=== PATIENT | male | born 1970 | race Caucasian/White ===

== ENCOUNTER 2022-09-14 15:21 | Inpatient (IN) | payer BC, SELFPAY ==
[2022-09-14] VITALS (13 sets, daily range): BP systolic 109–150; BP diastolic 71–98; PULSE 72–110; RESP 15–20; TEMP 35.5–36.9; O2SAT 99–100
--- NOTE | ~2022-09-14 | XR_ITS ---
EXAMINATION: XR chest 1V portable INDICATION: Fever TECHNIQUE: Portable AP chest at 0756 hours COMPARISON: 09/16/2022 FINDINGS: The endotracheal and nasogastric tubes have been removed. There are minimal airspace opacit ies of the left lung base. No pleural effusion or pneumothorax. The cardiomediastinal silhouette is s table. IMPRESSION: 1. Minimal left basilar airspace opacity, consistent with atelectasis versus pneumonia. 2. Support tube removal. Reviewed, dictated and finalized at location A. IMPRESSION: 1. Minimal left basilar airspace opacity, consistent with atelectasis versus pn eumonia. 2. Support tube removal.
--- NOTE | ~2022-09-14 | MR_ITS ---
MRI of the brain Clinical History: CVA Technique: Axial and sagittal T1-weighted images were acquired. These were followed by axial T2-weigh demar, diffusion weighted, gradient, and FLAIR images. Findings: There is patchy restricted diffusion in the left parietal lobe, especially in the posterior , paramedian high left parietal lobe and along the superior margin of the left lateral ventricle. The re are numerous additional smaller scattered focal areas of restricted diffusion in the bilateral MCA distributions predominantly. Small focus of restricted diffusion present in the medial left temporal lobe. There is corresponding FLAIR hyperintense signal with most of these lesions. No intracranial hemorrhage evident. Ventricles and subarachnoid spaces are unremarkable. Orbits are unremarkable. Paranasal sinuses and m astoid air cells are clear. Distal right vertebral artery flow-void not clearly visualized Sagittal midline structures are intact.. IMPRESSION: Multiple scattered areas of acute infarct in the bilateral MCA distributions predominantly. Largest a reas of infarct are in the left parietal lobe. Given the scattered distribution in bilateral vascular territories, consider proximal source of embolic showering. Reviewed, dictated and finalized at location M. IMPRESSION: Multiple scattered areas of acute infarct in the bilateral MCA distributions pr edominantly. Largest areas of infarct are in the left parietal lobe. Given the scattered distribution in bilateral vascular territories, consider proximal albertina rce of embolic showering.
--- NOTE | ~2022-09-14 | US_ITS ---
Duplex Sonography of the right upper extremity: Indication: Phlebitis right wrist Sagittal and transverse B-mode images as well as color-flow imaging were performed on the right inter nal jugular, subclavian, axillary, brachial, basilic, and cephalic veins. B-mode examination was don e without and with compression in the transverse plane. There is good visualization of the internal jugular, subclavian, axillary, brachial, cephalic, and basilic veins. Normal flow was seen on color-f low imaging. Normal compressibility was demonstrated. Distal right cephalic vein near the wrist demonstrate echogenic thrombosis, and is noncompressible wi th absence of flow. Impression: Thrombosis of the distal cephalic vein near the wrist. No deep vein thrombosis in the right upper extremity. Reviewed, dictated and finalized at location . Impression: Thrombosis of the distal cephalic vein near the wrist. No deep vein thrombosis in the right upper extremity.
--- NOTE | ~2022-09-14 | CT_ITS ---
EXAMINATION: CT brain wo con INDICATION: Encephalopathy, transient alteration of awareness COMPARISON: None TECHNIQUE: Standard unenhanced head CT. The dose-length product (DLP) was 1059.33 mGy-cm. The mA was adjusted according to patient size. Iterative reconstruction technique was employed. FINDINGS: No intracranial hemorrhage is identified. There are an area of low-attenuation in the poste rior left frontal lobe and medial left frontoparietal region. There are smaller, subtle areas of low attenuation anteriorly in the left frontal lobe. The ventricles are normal. There is no abnormal mass effect or midline shift. The basal cisterns are patent. The orbits are normal. The paranasal sinuses , mastoids and calvarium are normal. IMPRESSION: 1. Subtle areas of low attenuation in the left frontal lobe and medial left frontoparietal region whi ch may reflect infarct related to recent cardiopulmonary arrest. Reviewed, dictated and finalized at location A. IMPRESSION: 1. Subtle areas of low attenuation in the left frontal lobe and medial left fro ntoparietal region which may reflect infarct related to recent cardiopulmonary arrest.
--- NOTE | ~2022-09-14 | US_ITS ---
EXAMINATION: US venous doppler [facility] DATE: 09/17/2022 08:45 INDICATION: Bilateral lower limb swelling TECHNIQUE: Dooley scale images without and with compression and Doppler images of the bilateral lower e xtremity veins were obtained. COMPARISON: None FINDINGS: The right common femoral vein, profunda femoral vein, femoral vein, popliteal vein, peroneal trunk, p osterior tibial veins, and greater saphenous vein are patent. The left common femoral vein, profunda femoral vein, femoral vein, popliteal vein, peroneal trunk, po sterior tibial veins, and greater saphenous vein are patent. IMPRESSION: 1. Patent bilateral lower extremity veins. No evidence of deep venous thrombosis. Reviewed, dictated and finalized at location A. IMPRESSION: 1. Patent bilateral lower extremity veins. No evidence of deep venous thrombosi s.
--- NOTE | ~2022-09-14 | XR_ITS ---
Portable chest x-ray Comparison: 09/15/2022 Clinical History: Respiratory failure Findings: Endotracheal tube and NG tube are in satisfactory positions. Questionable minimal left per ihilar haziness. Right lung clear. Cardiomediastinal silhouette is stable. Bones and soft tissues ar e unremarkable. Impression: Questionable minimal left perihilar haziness, nonspecific. Support tubes, as above. Reviewed, dictated and finalized at location . Impression: Questionable minimal left perihilar haziness, nonspecific. Support tubes, as above.
--- NOTE | ~2022-09-14 | XR_ITS ---
EXAMINATION: XR chest 1V portable INDICATION: Fever TECHNIQUE: Portable AP chest at 2112 hours COMPARISON: 09/17/2022 FINDINGS: The lungs are free of acute opacities. No pleural effusion or pneumothorax. The cardiomedia stinal silhouette is normal. IMPRESSION: 1. No acute cardiopulmonary abnormality. Reviewed, dictated and finalized at location F.
--- NOTE | ~2022-09-14 | XR_ITS ---
Portable chest x-ray Comparison: 09/14/2022 Clinical History: Intubated Findings: Endotracheal tube and NG tube are in satisfactory positions. Probable minimal central pulm onary edema. Cardiomediastinal silhouette is stable. Bones and soft tissues are unremarkable. Impression: Probable minimal central pulmonary edema. Support tubes, as above. Reviewed, dictated and finalized at [facility]. Impression: Probable minimal central pulmonary edema. Support tubes, as above.
--- NOTE | ~2022-09-14 | US_ITS ---
EXAMINATION: US carotid duplex BI DATE: 09/17/2022 15:11 INDICATION: Cerebrovascular infarct TECHNIQUE: Grayscale, color Doppler, and pulsed Doppler images of the cervical carotid arteries were obtained. The degree of vessel stenosis is placed in one of the following categories: normal, <50%, 5 0-69%, >=70% but less than near-occlusion, near-occlusion, or total occlusion. Note that percent sten osis relative to normal distal artery lumen diameter is indirectly measured from velocity measurement s as described by Steve, et al. Radiology 2003; 229:[id number]. COMPARISON: None. FINDINGS: RIGHT: The right common carotid artery (CCA) peak systolic velocity (PSV) is 135.0 cm/s. The right internal carotid artery (ICA) PSV is 83.6 cm/s. The right ICA end-diastolic velocity (EDV) is 22.6 cm/s. The r ight ICA/CCA PSV ratio is 0.6. Grayscale and color Doppler images yield an estimate of less than 50% diameter reduction from plaque in the ICA. The external carotid artery (ECA) PSV is 106.4 cm/s. There is antegrade flow in the right vertebral artery. LEFT: The left CCA PSV is 149.6 cm/s. The left ICA PSV is 80.2 cm/s. The left ICA EDV is 23.3 cm/s. The lef t ICA/CCA PSV ratio is 0.5. Grayscale and color Doppler images yield an estimate of less than 50% renetta meter reduction from plaque in the ICA. The ECA PSV is 132.4 cm/s. There is antegrade flow in the lef t vertebral artery. IMPRESSION: 1. Less than 50% stenosis in the right internal carotid artery. 2. Less than 50% stenosis in the left internal carotid artery. Reviewed, dictated and finalized at Location [facility]. Reviewed, dictated and finalized at location A.
--- NOTE | ~2022-09-14 | XR_ITS ---
MODIFIED ESOPHAGRAM HISTORY: Dysphagia. TECHNIQUE: Modified barium esophagram was performed by speech pathologist under radiologist fluorosco pic guidance. This was recorded on tape. The exam was reviewed on 09/19/2022 10:25 CDT. The DAP for this procedure was 1.15 Gycm2. Fluoroscopy time is 1.1 minutes. FINDINGS: Lateral projection of the cervical spine demonstrates normal alignment. There is normal s wallowing function without evidence for penetration or aspiration.. IMPRESSION: 1: Normal swallowing function without penetration or aspiration. 2: Please refer to speech pathologist report for additional detail. Reviewed, dictated and finalized at location A.
--- NOTE | ~2022-09-14 | XR_ITS ---
EXAMINATION: XR chest ET placement Exam Date/Time: 09/14/2022 15:45 CDT HISTORY: ET TUBE PLACEMENT, PLEASE ALSO COMMENT ON OG Comparison: None available. RESULT: Lines, tubes, and devices: Endotracheal tube, terminating 2.4 cm above the sharonda. Nasogastric tube tip and side port project over the stomach. Lungs and pleura: Low lung volumes. Diffuse bilateral groundglass and reticular opacities. Cardiomediastinal silhouette: Heart size enlarged by technique. Otherwise unremarkable. Other: No acute osseous or upper abdominal finding. IMPRESSION: Endotracheal and NG tube, in good position. Mild pulmonary edema. Reviewed, dictated and finalized at location K.
--- NOTE | ~2022-09-14 | US_ITS ---
EXAMINATION: US abdomen limited DATE: 09/17/2022 08:45 INDICATION: Right upper quadrant pain TECHNIQUE: Multiple grayscale and Doppler ultrasound images of the abdomen were obtained. COMPARISON: None available FINDINGS: The head and body of the pancreas are normal. The pancreatic tail is obscured by bowel gas. The liver demonstrates increased echogenicity, heterogenous echotexture, and decreased through trans mission. No surface nodularity. Normal hepatopetal flow in the main portal vein. The gallbladder is n ormal with no abnormal wall thickening, pericholecystic fluid or stones. The normal common bile duct measures 4 mm. There was no sonographic Owen sign. IMPRESSION: 1. Diffuse hepatic steatosis. Reviewed, dictated and finalized at location A.
--- NOTE | 2022-09-14 15:27 | ECG_ITS ---
Measurements Intervals [place] Rate: 0 P: NE: 0 QRS: QRSD: 0 T: QT: 0 QTc: 0 Interpretive Statements SINUS TACHYCARDIA NON-CONDUCTED ATRIAL PREMATURE COMPLEX ANTEROSEPTAL ST ELEVATION MYOCARDIAL INJURY- ACUTE WITH RECIPROCAL ST DEPRESSION I IN INFERIOR LEADS ABNORMAL ECG NO PREVIOUS ECG AVAILABLE FOR COMPARISON Electronically Signed On 09-14-2022 15:43:57 CDT by Newton Rider D.O.
[2022-09-14] MEDS: FENTANYL 2,500MCG/NS250ML(*CRX 2,500 MCG/250 ML BAG IV CONT (15:40)
[2022-09-14] MEDS: MIDAZOLAM 100MG/NS 100ML(*CRX) 100 MG/100 ML BAG IV CONT (15:40)
--- NOTE | 2022-09-14 15:41 | ED.GENADULT ---
HPI - General Adult General Chief complaint: Cardiac Arrest/CPR Stated complaint: Cardiac arrest Time Seen by Provider: 09/14/22 15:26 History of Present Illness HPI narrative: Patient is a 51-year-old male who presents ER after having cardiac arrest. He was at a local [facility] when he collapsed. Bystander CPR was initiated. Patient found to be in V-fib by paramedics. Received defibrillation and went to a normal sinus rhythm with ROSC. This lasted a short while and then he went back into V-fib. He received subsequent shock. Patient arrived at the ER with ROSC. He is unresponsive. There is no history on him. Patient then was waking up and was combative requiring intubation. Review of Systems Review of Systems: ROS unobtainable: Yes unobtainable due to medical condition [facility] Past Medical History Medical History (Updated 09/14/22 @ 16:35 by Reno Wise MD) Hypertension Kidney stones Surgical History Surgical History (Updated 09/14/22 @ 16:09 by Reno Wise MD) Surgical history unknown Exam Narrative: GENERAL: Combative, obese. HEAD: Normocephalic, atraumatic. EYES: PERRL and EOMI. ENT: Mucous membranes moist. CHEST: Clear to auscultation. No respiratory distress. HEART: Regular rate and rhythm. Normal peripheral pulses. ABDOMEN: Soft, nontender, nondistended. EXTREMITIES: Normal range of motion. No edema. SKIN: Warm, dry, no rash. NEURO: Patient has awakened and is fighting but cannot communicate or follow commands. Course Course Emergency Course: Patient combative as he was waking up and he is intubated subacute care for him. After intubation EKG shows ST elevation [place]. STEMI activation occurred and cardiology immediately at bedside. I been in contact with the patient's stepmother Beatriz who is with his Father Jeremy. They can be reached at [phone]. There is no family living here locally and they will be acting as his surrogate decision makers. They are aware of the nature of his illness and would like to proceed with all care. Vital Signs Vital signs: Vital Signs Pulse Rate 109 H 09/14/22 15:22 Respiratory Rate 20 09/14/22 15:22 Pulse Oximetry 100 09/14/22 15:22 Oxygen Delivery Bag Valve Mask 09/14/22 15:22 Pulse Rate 110 H 09/14/22 15:40 Respiratory Rate 20 09/14/22 15:40 Pulse Oximetry 100 09/14/22 15:22 Oxygen Delivery Bag Valve Mask 09/14/22 15:22 Procedures Intubation Intubation #1: Intubation Date: 09/14/22 Intubation Time: 15:31 Time out performed: No sedative: Etomidate Mg Given: 30 paralytic: Succinylcholine Mg Given: 100 Laryngoscope: Luz Elena Tube Size (cm): 7.5 Method of Intubation: orotracheal Number of Attempts: 1 Tube Secured Depth (cm): 23 Tube Secured Location: teeth Tube Placement Confirmation: visualized tube passing through cords, equal breath sounds bilaterally, no breath sounds over epigastrium and confirmation by capnometry Patient Tolerated Procedure: well Intubation Complications: none Medical Decision Making Vital Signs Vital Signs: Vital Signs Pulse Rate 109 H 09/14/22 15:22 Respiratory Rate 20 09/14/22 15:22 Pulse Oximetry 100 09/14/22 15:22 Oxygen Delivery Bag Valve Mask 09/14/22 15:22 Pulse Rate 110 H 09/14/22 15:40 Respiratory Rate 20 09/14/22 15:40 Pulse Oximetry 100 09/14/22 15:22 Oxygen Delivery Bag Valve Mask 09/14/22 15:22 Lab Data 09/14/22 15:38 09/14/22 15:38 Labs: Lab Results 09/14/22 09/14/22 09/14/22 Range/Units 15:38 15:38 15:38 WBC 8.7 (4.5-10.0) K/mm3 RBC 5.70 (4.6-6.20) M/mm3 Hgb 16.6 (14.0-18.0) g/dL Hct 48.2 (42.0-52.0) % MCV 84.6 (80-100) fl MCH 29.1 (26-34) pg MCHC 34.4 (32-36) g/dl RDW 13.0 (11.5-14.5) % Plt Count 285 (150-375) k/mm3 MPV 10.7 H (7.4-10.4) fl [place]
[2022-09-14 15:47] LABS: Basophils Absolute Auto 0.1 K/mm3 (0.0-0.1); Basophils Percent Auto 1.2 % (0.2-1.2); Eosinophils Absolute Auto 0.1 K/mm3 (0-0.3); Eosinophils Percent Auto 1.4 % (0-4.4); Hematocrit 48.2 % (42.0-52.0); Hemoglobin 16.6 g/dL (14.0-18.0); Immature Granulocyte Absolute 0.15 K/mm3 (0.00-0.031); Immature Granulocyte Percent A 1.7 % (0-0.5); Lymphocytes Absolute Auto 4.15 K/mm3 (0.9-3.2); Lymphocytes Percent Auto 47.9 % (18.3-44.2); Mean Corpuscular HGB Conc 34.4 g/dl (32-36); Mean Corpuscular Hemoglobin 29.1 pg (26-34); Mean Corpuscular Volume 84.6 fl (80-100); Mean Platelet Volume 10.7 fl (7.4-10.4); Monocytes Absolute Auto 0.6 K/mm3 (0.1-0.6); Monocytes Percent Auto 6.6 % (2.6-8.5); Neutrophils Absolute Auto 3.6 K/mm3 (1.3-6.7); Neutrophils Percent Auto 41.2 % (45.5-73.1); Nucleated Red Blood Cells Perc 0.2 % (0.0-0.2); Platelet Count Result 285 k/mm3 (150-375); White Blood Count 8.7 K/mm3 (4.5-10.0)
[2022-09-14 15:58] LABS: Alanine Aminotransferase 261 U/L (6-50); Albumin Level 4.7 g/dL (3.5-5.1); Alkaline Phosphatase 68 U/L (38-126); Anion Gap 15 mmol/L (8-16); Aspartate Amino Transferase 260 U/L (17-59); Bilirubin,Total 1.4 mg/dL (0.2-1.3); Blood Urea Nitrogen 23 mg/dL (9-20); Calcium 8.7 mg/dL (8.4-10.2); Carbon Dioxide 20 mmol/L (22-30); Chloride 105 mmol/L (98-107); Cholesterol 226 mg/dL (0-200); Estimated CRCL calculation 68 ml/min; Estimated Glomerular Filt Rate 49; Glucose 254 mg/dL (65-110); HDL Direct 40 mg/dL; Potassium 2.9 mmol/L (3.4-5.0); Sodium 140 mmol/L (137-145); Triglycerides 374 mg/dL (<150)
--- NOTE | 2022-09-14 16:03 | PC.NURSE ---
1525:EDP Dr. Wise at bedside for intubation. 1530: 30mg of Etomidate and 100mg of Succinylcholine given IV per Dr. Wise. VORB. 1531: pt intubated 7.5 tube 25 @the lip. Respiratory at bedside assisting ventilations. 1535: EKG Obtained and STEMI called by Dr. Wise.
--- NOTE | 2022-09-14 16:05 | P.HP_ITS ---
H&P: HPI History of Present Illness Date/Time: 09/14/22 16:05 Chief Complaint: Cardiac arrest Narrative: Patient is a 51-year-old male with unknown past medical history who presented to the ER after having cardiac arrest. Patient was at a local [facility] when he collapsed. Bystander CPR initiated. Patient found to be in VFIB by paramedics. Received 1 shock and went into ROSC with sinus rhythm. Then went again into VFIB. Got another shock. Patient arrived to the ER with ROSC. He was unresponsive initially. He was then waking up and was combative thus requiring intubation. After intubation, EKG showed massive anterolateral STEMI. STEMI team activated. Family does not live here locally and lives in [place]. ER was able to talk to them via phone. Review of Systems Review of Systems: ROS unobtainable: Yes unobtainable due to endotracheal tube and unobtainable due to medical condition [facility] Past Medical History Medical History (Updated 09/14/22 @ 16:10 by Isidro Park MD) Hypertension Kidney stones Surgical History Surgical History (Updated 09/14/22 @ 16:09 by Reno Wise MD) Surgical history unknown Comments Cannot obtain past history due to intubation status. Meds Vital Signs Vital Signs - 24 hr 09/14/22 15:22 Pulse Rate 109 H Respiratory Rate 20 Pulse Oximetry 100 Oxygen Delivery Bag Valve Mask Exam Const: Other: Critically ill, intubated. Resp: Other: Intubated Cardio: Rate: tachycardic Rhythm: regular rhythm Skin: General skin exam: normal color Neuro: Other: Cannot assess due to intubation/sedation status Psych: Other: Cannot assess due to intubation/sedation status H&P: Results Labs Labs: Short CBC 09/14/22 Range/Units 15:38 WBC 8.7 (4.5-10.0) K/mm3 Hgb 16.6 (14.0-18.0) g/dL Hct 48.2 (42.0-52.0) % Plt Count 285 (150-375) k/mm3 BMP 09/14/22 15:38 Sodium 140 Potassium 2.9 L Chloride 105 Carbon Dioxide 20 L BUN 23 H Creatinine 1.50 H Glucose 254 H Calcium 8.7 Liver Function 09/14/22 Range/Units 15:38 Total Bilirubin 1.4 H (0.2-1.3) mg/dL AST 260 H (17-59) U/L ALT 261 H (6-50) U/L Alkaline Phosphatase 68 (38-126) U/L Albumin 4.7 (3.5-5.1) g/dL Assessment and Plan Assessment and plan (1) STEMI (ST elevation myocardial infarction): Code(s): I21.3 - ST elevation (STEMI) myocardial infarction of unspecified site Status: Acute (2) Cardiac arrest with ventricular fibrillation: Code(s): I46.9 - Cardiac arrest, cause unspecified; I49.01 - Ventricular fibrillation Status: Acute Plan Proceed with emergent coronary angiography with plans for primary PCI.
[2022-09-14 16:08] LABS: INR 1.1; Prothrombin Time 13.7 Seconds (11.1-14.7)
[2022-09-14 16:09] LABS: LDL Cholesterol Direct 121 mg/dL; Partial Thromboplastin Time 28.6 SECONDS (22.3-36.8); Troponin I < 0.012 ng/mL (0.000-0.034)
--- NOTE | 2022-09-14 16:38 | PC.NURSE ---
1545: 5000 units of Heparin given IV per Dr. Adithya BARNETT. 1550: 324mg of Aspirin and 180mg of Brilinta crushed and given to pt via OG tube per Dr. Wise. ANIBAL.
--- NOTE | 2022-09-14 17:13 | ECG_ITS ---
Measurements Intervals [place] Rate: 89 P: DE: 0 QRS: -11 QRSD: 103 T: 142 QT: 420 QTc: 512 Interpretive Statements SINUS RHYTHM LEFT VENTRICULAR HYPERTROPHY AND ST-T CHANGE ANTEROSEPTAL INFARCT- PROBABLY RECENT ABNORMAL ECG COMPARED TO ECG 09/14/2022 15:35:08 ST ELEVATION RESOLVING Electronically Signed On 09-14-2022 21:03:47 CDT by Newton Rider D.O.
--- NOTE | 2022-09-14 17:55 | WPDMODSED ---
Moderate Sedation Note-Pt Data Patient Data Diagnosis: STEMI, VFIB cardiac arrest Present Complaint: STEMI, VFIB cardiac arrest Procedure to be performed/Plan: Coronary angiography, primary PCI Current Medications: Active Medications Aspirin (Aspirin 81 Mg Enteric Tablet) 81 mg PO QAM [facility] Atorvastatin Calcium (Atorvastatin 40 Mg Tablet) 80 mg PO DAILY [facility] Heparin Sodium (Porcine) (Heparin Sodium 5,000 Units/Ml Vial) 0 units IV PUSH PRN PRN PRN Reason: aPTT less than 55 seconds Heparin Sodium (Porcine) (Heparin Sodium 5,000 Units/Ml Vial) 0 units IV PUSH PRN PRN PRN Reason: aPTT 55 - 70 seconds Fentanyl Citrate (Fentanyl 2,500 Mcg/Ns 250 Ml) 2,500 mcg in 250 mls @ 2.5 mls/hr IV CONT .Q72H STA; Protocol Stop: 09/17/22 15:25 Last Admin: 09/14/22 15:40 Dose: 25 mcg/hr, 2.5 mls/hr Midazolam HCl (Versed 100 Mg/Ns 100 Ml) 100 mg in 100 mls @ 1 mls/hr IV CONT .Q72H STA; Protocol Stop: 09/17/22 15:25 Last Admin: 09/14/22 15:40 Dose: 1 mg/hr, 1 mls/hr Propofol (Diprivan) 100 mls @ 3.81 mls/hr IV CONT .[id number] ANYA Potassium Chloride 40 meq/ (Sodium Chloride) 520 mls @ 130 mls/hr IVPB ONCE ONE Stop: 09/14/22 20:14 Heparin Sodium/Dextrose (Heparin Sodium/D5w 100 Units/Ml) 25,000 units in 250 mls @ 15.24 mls/hr IV CONT .[id number] ANYA; Protocol Miscellaneous Information (Please Clarify Patient's Allergies Once Available) 0 each XX CLARIFY ANYA Stop: 10/14/22 00:00 Perflutren Lipid Microsphere (Perflutren Lipid Microspheres 1.5 Ml Vial Diluted To 10 Ml Total Volume) 0 ml IV PUSH ONCE PRN; Protocol PRN Reason: adequate visualization Stop: 09/16/22 17:52 Ticagrelor (Ticagrelor 90 Mg Tablet) 90 mg PO Q12HR [facility] Sedation/Anesthesia: No previous sedation/anesthesia problems (including family history). [facility] Past Medical History Medical History Hypertension Kidney stones Surgical History Surgical History Surgical history unknown Mod Sed Physical Exam Physical Exam Pre Procedural Exam: Normal: Extremities and Skin and Variation: Appearance (Critically ill. Intubated), Airway (OETT in place. Intubated), Heart Rate (Tachycardic ), Heart Rhythm (Sinus) and Neuro Exam (Sedated) Hours since solid foods: 0 Hours since liquid intake: 0 Mallampati Classification: class III Internal Medicine - PN: Obj Da Vital Signs Vital Signs: Vital Signs - 24 hr 09/14/22 15:22 09/14/22 15:40 09/14/22 15:40 Pulse Rate 109 H 110 H 110 H Respiratory Rate 20 20 20 Blood Pressure 150/98 H Pulse Oximetry 100 Oxygen Delivery Bag Valve Mask Oxygen Flow Rate 09/14/22 15:35 Pulse Rate Respiratory Rate Blood Pressure Pulse Oximetry 100 Oxygen Delivery Bag Valve Mask Oxygen Flow Rate 15 Meds/Results Medications: Active Medications Generic Name Dose Route Start Last Admin Trade Name Freq PRN Reason Stop Dose Admin Aspirin 81 mg 09/15/22 09:00 Aspirin 81 Mg Enteric Tablet PO QAM [facility] Atorvastatin Calcium 80 mg 09/15/22 09:00 Atorvastatin 40 Mg Tablet PO DAILY [facility] Heparin Sodium (Porcine) 0 units 09/14/22 17:53 Heparin Sodium 5,000 Units/Ml Vial IV PUSH PRN PRN aPTT less than 55 seconds Heparin Sodium (Porcine) 0 units 09/14/22 17:53 Heparin Sodium 5,000 Units/Ml Vial IV PUSH PRN PRN aPTT 55 - 70 seconds Fentanyl Citrate 2,500 mcg in 250 mls @ 2.5 mls/hr 09/14/22 15:26 09/14/22 15:40 Fentanyl 2,500 Mcg/Ns 250 Ml IV CONT 09/17/22 15:25 25 mcg/hr .Q72H STA 2.5 mls/hr Administration Protocol 25 MCG/HR Midazolam HCl 100 mg in 100 mls @ 1 mls/hr 09/14/22 15:26 09/14/22 15:40 Versed 100 Mg/Ns 100 Ml IV CONT 09/17/22 15:25 1 mg/hr .Q72H STA 1 mls/hr Administration Protocol 1 MG/HR Propofol 100 mls @ 3.81 mls/hr 09/14/22 16:40 Diprivan IV CONT .[id number] ANYA 5 MCG/KG/MIN Potassium Chloride 4
--- NOTE | 2022-09-14 17:57 | SUR.OPER ---
father's phone number obtained off patient's phone under emergency contacts, dr barnett will call patient's father, JACKSON CORTEZ and update him on patient's condition.
--- NOTE | 2022-09-14 17:58 | WPDCARDPROC ---
Cardiac Cath Procedure Note Date of procedure:: 09/14/22 Performing physician:: CATHETERIZATION LABORATORY REPORT Procedure Date: 09/14/2022 [employer]: Isidro Park M.D., [facility]? Referring Physician: Reno Wise M.D. ([facility]) ? Anesthesia: Versed and Fentanyl were ordered and given in my presence at 16:17, procedure ended at 17:24. Supervision of nurse monitored moderate sedation with Versed and Fentanyl was provided for 67 minutes. Total of Versed 4mg and Fentanyl 100mcg were administered by the Cassandra Developer RN Annie Cross, in addition to increasing his Versed drip to 6mg/hour and Fentanyl drip to 100mcg/hour. Pre-op Diagnosis: STEMI in the setting of VFIB cardiac arrest Post-op Diagnosis: 1. Multivessel coronary artery disease. The LAD is occluded in its proximal portion with faint collaterals to the distal LAD seen. LAD thought to be the culprit vessel, attempted to wire the LAD with two different wires, however, unable to cross the occlusion in the LAD. Therefore, suspect the occlusion may be more chronic than acute. EKG obtained with patient on the labor relations director table, and the ST elevations had resolved, therefore, we concluded the case at this point. 2. Left ventricular end-diastolic pressure of 19mmHg Procedure(s): 1. Moderate sedation 2. Ultrasound-guided access of the right common femoral artery and right femoral vein 3. Coronary angiography 4. Left heart cath 5. Attempted to wire the LAD, unsuccessful 6. Angioseal closure of the right common femoral artery 7. Venous sheath sutured in place Access Site: Right common femoral artery Right femoral vein Brief History and Clinical Indications: Patient is a 51-year-old male who is referred for STEMI after VFIB cardiac arrest. Time out called, patient name, date of , medical record number, allergies, procedure performed, identify [employer], patient and staff member concurred with accurate data, procedure carried on. Findings: LEFT HEART CATHETERIZATION FINDINGS: 1. Left main: The left main coronary artery is patent without any significant obstructive disease. 2. Left anterior descending: The LAD is completely occluded in its proximal section immediately after the bifurcation of a high-origin large caliber diagonal branch. There are faint [id number] and [id number]-[id number] collaterals that appear to be supplying the distal and apical LAD. The diagonal branch has significant 80-90% disease in its ostial and proximal segments. The mid-distal portion of the diagonal branch has another focal 80-90% stenosis. 3. Ramus: There is a ramus branch that is diffusely diseased. 4. Left circumflex: The left circumflex is a large caliber vessel. The proximal-mid portion of the vessel has mild diffuse disease. The distal LCX has a 95-99% stenosis. There is a large caliber OM vessel with mild diffuse disease without any signficant obstructive angiographic disease. 5. Right coronary artery: Large caliber vessel. The RCA is the dominant vessel. The proximal and mid RCA have mild diffuse disease. The distal RCA has a 90-95% stenosis at the bifurcation extending into the bifurcation. The RPLV vessel is very small. Distal RCA disease extends into the ostium of the RPDA with remainder of the RPDA having diffuse disease. 6. Left ventricle: A. End-diastolic pressure 19mmHg. B. LV gram deferred. C. No significant gradient across aortic valve on catheter pullback. Description of Procedure: Patient transferred to labor relations director room. Prepped and draped in usual sterile fashion. 2% lidocaine in right groin area. Micropuncture needle used to access right common femoral artery with Seldinger technique under fluoroscopic guidance. J wire advanced, micropuncture cannula placed. Right iliofemoral angiogram performed, access confirmed and micropuncture cannula exchanged for 6-FR sheath. Right femoral vein was accessed using micropuncture technique. 5-FR sheath placed. Venous sheath
--- NOTE | 2022-09-14 18:30 | ADMGEN ---
This patient, Lonnie Cason, was admitted to Intensive Care Unit-6. Patient/family oriented to hospital policies and general routines including ID bracelet, bed and alarms, visiting hours, pain management, procedures, bathroom and other care routines, personal items, smoking policy, room service/diet, and visiting hours. Information on how to activate the Rapid Response Team has been discussed. Patient/Family are encouraged to report perceived risks to care and to ask questions if they do not understand what they are told or what they should do.
[2022-09-14] MEDS: TICAGRELOR 90 MG TABLET PO (21:16)
[2022-09-14 22:07] LABS: Anion Gap 3 mmol/L (8-16); Blood Urea Nitrogen 24 mg/dL (9-20); Calcium 7.9 mg/dL (8.4-10.2); Carbon Dioxide 26 mmol/L (22-30); Chloride 110 mmol/L (98-107); Estimated CRCL calculation 79 ml/min; Estimated Glomerular Filt Rate 58; Glucose 107 mg/dL (65-110); Potassium 4.5 mmol/L (3.4-5.0); Sodium 139 mmol/L (137-145)
[2022-09-14] MEDS: RAPID SEQUENCE INTUBATION KIT 1 EACH (23:15)
[2022-09-14] MEDS: POTASSIUM CHLORIDE INJ 40 MEQ in SODIUM CHLORIDE 0.9% IV 500 ML 130 ML IVPB (23:16)
[2022-09-15] VITALS (128 sets, daily range): BP systolic 90–188; BP diastolic 63–98; PULSE 66–113; RESP 12–30; TEMP 37.2–38.4; O2SAT 94–100; BMI 38.8
--- NOTE | 2022-09-15 | ECHO_ITS ---
Patient Info Name: Lonnie Cason Age: 51 years : 1970 Gender: Male Ht: 69 in Wt: 279 lbs BSA: 2.54 m2 HR: 94 bpm BP: 146 / 75 mmHg Heart Rhythm: Sinus Rhythm Exam Date: 09/15/2022 7:40 AM Exam Location: [facility] Pulmonary Patient Status: Inpatient Admit Date: 09/14/2022 Staff Ordering Physician: Isidro Park MD (otf/stalin) Political Director: Geovany Owen, RDCS, RT Attending Provider: Isidro Park MD (otf/stalin) Referring Physician: Xavier JUNE; Exam Type: CA echo dop color flow w con Study Info Indications I21.3 - ST elevation (STEMI) myocardial infarction of unspecified site Complete two-dimensional, color flow and Doppler transthoracic echocardiogram is performed with contrast to opacify the left ventricle and to improve the deliniation of the left ventricle endocardial borders. Summary 1. Technically challenging exam with obese patient on ventilator support. 2. Definity contrast used to improve visualization. 3. Severe left ventricular hypertrophy with normal size and hypokinesia of the distal anterior wall and apex. 4. Global left ventricular ejection fraction is visually estimated at 40-45%. 5. Mild sclerosis of the aortic valve. Left Ventricle Left ventricular chamber dimension is normal. Left ventricular systolic function is mildly reduced, estimated at 40-45%. There is severe concentric increased left ventricular wall thickness. The left ventricular diastolic function is grade I diastolic dysfunction. Right Ventricle Right ventricular chamber dimension is normal. Left Atria Left atrial chamber dimension is mildly enlarged. Right Atria Right atrial chamber dimension is not well visualized. Aortic Valve The aortic valve is trileaflet. Pulmonic Valve The pulmonic valve is not well visualized. Mitral Valve The mitral valve has normal leaflets. There is no mitral valve regurgitation. Tricuspid Valve The tricuspid valve leaflets are not well visualized. Pericardium/Pleural The pericardium appears normal. Aorta The aortic root size at the sinus of Valsalva is normal. Report Signatures
[2022-09-15 04:40] LABS: Basophils Absolute Auto 0.1 K/mm3 (0.0-0.1); Basophils Percent Auto 0.7 % (0.2-1.2); Eosinophils Percent Auto 0.2 % (0-4.4); Hematocrit 43.9 % (42.0-52.0); Hemoglobin 14.7 g/dL (14.0-18.0); Immature Granulocyte Absolute 0.02 K/mm3 (0.00-0.031); Immature Granulocyte Percent A 0.2 % (0-0.5); Lymphocytes Absolute Auto 1.23 K/mm3 (0.9-3.2); Lymphocytes Percent Auto 13.4 % (18.3-44.2); Mean Corpuscular HGB Conc 33.5 g/dl (32-36); Mean Corpuscular Hemoglobin 29.3 pg (26-34); Mean Corpuscular Volume 87.6 fl (80-100); Mean Platelet Volume 10.5 fl (7.4-10.4); Monocytes Absolute Auto 1.4 K/mm3 (0.1-0.6); Monocytes Percent Auto 14.7 % (2.6-8.5); Neutrophils Absolute Auto 6.5 K/mm3 (1.3-6.7); Neutrophils Percent Auto 70.8 % (45.5-73.1); Platelet Count Result 214 k/mm3 (150-375); Red Blood Count 5.01 M/mm3 (4.6-6.20); Red Cell Distribution Width 13.5 % (11.5-14.5); White Blood Count 9.2 K/mm3 (4.5-10.0)
[2022-09-15 04:52] LABS: Anion Gap 8 mmol/L (8-16); Blood Urea Nitrogen 25 mg/dL (9-20); Calcium 8.4 mg/dL (8.4-10.2); Carbon Dioxide 22 mmol/L (22-30); Chloride 110 mmol/L (98-107); Estimated CRCL calculation 85 ml/min; Estimated Glomerular Filt Rate > 60; Glucose 108 mg/dL (65-110); Potassium 4.4 mmol/L (3.4-5.0); Sodium 140 mmol/L (137-145)
[2022-09-15 05:06] LABS: INR 1.2; Prothrombin Time 14.5 Seconds (11.1-14.7)
[2022-09-15 05:34] LABS: Alveolar/Arterial O2 Gradient 165.8 mmHg; Base Excess ABG -3.4 mEq/l (+/-2.0); Fractional Inspired Oxygen 40 %; HCO3 ABG 21.4 mEq/l (22.0-26.0); Oxygen Content ABG 19.8 %vol (16.0-22.0); Oxygen Saturation ABG 94.9 % (95.0-100.0); PCO2 ABG 37.9 mmHg (35.0-45.0); PO2 ABG 75.8 mmHg (80.0-100.0); pH ABG 7.369 (7.350-7.450)
[2022-09-15 05:35] LABS: Arterial Blood Gas Ventilator rate 15 /MIN; Device VENTILATOR; Modified Allen's Test Pass; Site Drawn RIGHT RADIAL
[2022-09-15 05:36] LABS: Arterial Blood Gas PEEP 6 cmH2O; Arterial Blood Gas Tidal Volume 500 ml; Arterial Blood Gas Vent Mode CMV
[2022-09-15] MEDS: HEPARIN SOD/D5W 100 UNITS/ML 25,000 UNITS/250 ML BAG 10 UNITS IV CONT (06:08)
[2022-09-15] MEDS: MIDAZOLAM HCL (*CRX) 2 MG/2 ML VIAL (06:09)
[2022-09-15] MEDS: MIDAZOLAM 100MG/NS 100ML(*CRX) 100 MG/100 ML BAG 6 MG IV CONT (06:10)
[2022-09-15] MEDS: FENTANYL 2,500MCG/NS250ML(*CRX 2,500 MCG/250 ML BAG 12.5 MCG IV CONT (06:11)
--- NOTE | 2022-09-15 06:49 | PC.NURSE ---
called Peewee Cason with a condition update.
[2022-09-15] MEDS: PERFLUTREN LIPID MICROSPHERES 1.5 ML VIAL DILUTED TO 10 ML TOTAL VOLUME IV PUSH (07:58)
--- NOTE | 2022-09-15 07:58 | IVDEFINITY ---
Prior to administration of IV Definity the patient was educated on the risks and benefits of the imaging enhancing agent including potential adverse side effects. The patient verbalized understanding. Allergies were verified. No exclusion criteria were identified and at least one of the following inclusion criteria were met: 1) physician request, 2) patient technically difficult to image (per the [place] [employer] guidelines of two or more segments not discernable within the apical view), or 3) questionable left ventricular function. ?
[2022-09-15] MEDS: ASPIRIN 81 MG ENTERIC TABLET PO (08:23)
[2022-09-15] MEDS: ATORVASTATIN 40 MG TABLET 80 MG PO (08:23)
[2022-09-15] MEDS: TICAGRELOR 90 MG TABLET PO ×2 (08:23→20:43)
[2022-09-15] MEDS: MINERAL OIL/WHITE PETROLATUM OINTMENT 1 APPLIC EACH EYE ×2 (08:41→20:43)
--- NOTE | 2022-09-15 08:53 | WPDCNINT ---
Assessment and Plan Assessment and plan (1) Acute respiratory failure: Code(s): J96.00 - Acute respiratory failure, unspecified whether with hypoxia or hypercapnia Status: Acute Assessment and Plan: Acute respiratory failure post cardiac arrest as he became combative and agitated and was intubated on 09/14/2022. -ABGs and chest x-ray reviewed -continue CMV mode of ventilation, peep of 5 on 40% FiO2 -patient currently on fentanyl and Versed infusion, have asked the bedside RN to switch to Precedex infusion -once he is more awake and calm, will place on SBT and evaluate for extubation (2) Cardiac arrest with ventricular fibrillation: Code(s): I46.9 - Cardiac arrest, cause unspecified; I49.01 - Ventricular fibrillation Status: Acute Assessment and Plan: Patient presented with VFib arrest, bystander CPR was started, upon arrival of the EMS he was in shock, will VFib rhythm, patient received shock x1 with ROSC, he again went back into VFib and received another shock with ROSC upon arrival to the ED at [facility] -initial EKG in the ER showed massive anterolateral STEMI, patient was taken to cardiac labor custodian patient was taken to the labor custodian where he was found to have multi-vessel disease, LAD occluded is proximal portion with faint collaterals to distal LAD. LAD was thought to be the culprit vessel, the flume maker did attempted to wire the LAD but was unsuccessful, likely suspected secondary to chronic occlusion. Repeat EKG in the labor custodian table showed resolution of ST elevations. LVEDP was 19 mmHg -cardiology following closely, also tried to transfer the patient to [facility] which is currently full is not accepting nonemergency patient's, transfer was per family request (3) STEMI (ST elevation myocardial infarction): Code(s): I21.3 - ST elevation (STEMI) myocardial infarction of unspecified site Status: Acute Assessment and Plan: ST-elevation CT seen on initial EKGs, repeat EKG showed resolution of the ST-elevation CT -continue heparin infusion -aspirin, statin, Brilinta -echocardiogram has been ordered (4) Electrolyte imbalance: Code(s): E87.8 - Other disorders of electrolyte and fluid balance, not elsewhere classified Status: Acute Assessment and Plan: Patient was hypokalemic, potassium was replaced and has normalized -will maintain potassium level > 4.0 (5) Hyperlipidemia: Code(s): E78.5 - Hyperlipidemia, unspecified Status: Acute Assessment and Plan: Patient with -hyperlipidemia and course of panel continue high-dose atorvastatin (6) Acute kidney injury: Code(s): N17.9 - Acute kidney failure, unspecified Status: Acute Assessment and Plan: Patient presented with acute kidney injury with elevated creatinine of 1.5 on admission, likely related to STEMI, VFib arrest -this morning creatinine is down to 1.20 -continue to monitor urine output, renal function and electrolytes Plan DVT prophylaxis: On heparin infusion Stress ulcer prophylaxis: Nutrition: If patient does not get extubated today will start tube feeds Code Status: Full code Critical Care Time Spent: 47 minutes Due to a high probability of clinically significant, life threatening deterioration, the patient required my highest level of preparedness to intervene emergently and I personally spent this critical care time directly and personally managing the patient. This critical care time included obtaining a history; examining the patient; pulse oximetry; ordering and review of studies; arranging urgent treatment with development of a management plan; evaluation of patient's response to treatment; frequent reassessment; and discussions with other providers. It was exclusive of separately billable procedures and treating other patients and teaching time. Please see Assessment and Plan section and the rest of the note for further information on patient
[2022-09-15] MEDS: dexmedeTOMIDine 400 MCG/100 ML 400 MCG/100 ML BAG 5.97 MCG IV CONT (10:15)
--- NOTE | 2022-09-15 10:19 | PM.PNCARD ---
Progress Note: A&P Assessment and Plan (1) STEMI (ST elevation myocardial infarction): Code(s): I21.3 - ST elevation (STEMI) myocardial infarction of unspecified site Status: Acute Assessment and Plan: Presented following cardiac arrest. He was found to be in Vfib, achieved ROSC after 1 shock, went back into VF requiring another shock and had ROSC upon arrival to [place] ED. EKG showed massive anterolateral STEMI. He was taken emergently to the cardiac laboratory apparatus glass grinder where angiogram revealed multivessel disease. LAD lesion thought to be culprit and attempts were made at PCI, however those attempts were unsuccessful. Repeat EKG in the laboratory apparatus glass grinder showed resolution of ST elevations. He was taken to the ICU in stable condition with plan for medical management and outpatient referral for CTS. Continue heparin gtt for now Continue ASA Continue Brilinta Continue statin Check echo - further recommendations to follow based on findings. (2) Cardiac arrest with ventricular fibrillation: Code(s): I46.9 - Cardiac arrest, cause unspecified; I49.01 - Ventricular fibrillation Status: Acute Assessment and Plan: As above. He had a K+ of 2.9 on admission with underlying multivessel CAD which may have been the impetus for his arrest. Subjective Date/time seen: 09/15/22 08:29 Cardiology follow up for cardiac arrest, STEMI HPI: Patient is a 51-year-old male with unknown past medical history who presented to the ER after having cardiac arrest. Patient was at a local [facility] when he collapsed. Bystander CPR initiated. Patient found to be in VFIB by paramedics. Received 1 shock and went into ROSC with sinus rhythm. Then went again into VFIB. Got another shock. Patient arrived to the ER with ROSC. He was unresponsive initially. He was then waking up and was combative thus requiring intubation. After intubation, EKG showed massive anterolateral STEMI. STEMI team activated. He underwent coronary angiogram that revealed multivessel CAD. Attempts were made to intervene on the LAD which was thought to be the culprit lesion, but wire could not cross the lesion, suspect a chronic lesion. Repeat EKG in the laboratory apparatus glass grinder table showed resolution of ST elevations.? LVEDP was 19 mmHg Date of service 09/15/2022: He remains intubated and sedated. No ectopy on telemetry overnight. He is stable overall. Plan for PSV trial today, hopefully will be able to extubate. Review of Systems Review of Systems: ROS unobtainable: Yes unobtainable due to endotracheal tube and unobtainable due to medical condition Exam Const: Other: Critically ill, intubated. HENMT: Head: normal to inspection Other: OETT in place Eyes: General: appearance normal, both eyes and all related structures Resp: Effort & Inspection: other (mechanically ventilated) Auscultation: clear to auscultation bilaterally Other: Intubated Cardio: Rate: tachycardic Rhythm: regular rhythm Heart sounds: no murmurs Urinary Catheter: Urinary Catheter: patent and draining Skin: General skin exam: normal color Other: R groin arterial insertion site free from bleeding, hematoma. Neuro: Other: Cannot assess due to intubation/sedation status Extrem: Other: no edema Psych: Appearance: grossly normal Other: Cannot assess due to intubation/sedation status Objective Data Vital Signs Vital Signs: Vital Signs - 24 hr 09/14/22 15:22 09/14/22 15:40 09/14/22 15:40 Temperature Pulse Rate 109 H 110 H 110 H Pulse Rate [Bilateral Pedal (Dorsalis Pedis) Palpation] Respiratory Rate 20 20 20 Blood Pressure 150/98 H Pulse Oximetry 100 Oxygen Delivery Bag Valve Mask Oxygen Flow Rate Fraction of Inspired Oxygen 09/14/22 15:35 09/14/22 16:14 09/14/22 17:34 Temperature Pulse Rate 101 H 88 Pulse Rate [Bilateral Pedal (Dorsalis Pedis) Palpation] Respiratory Rate Blood Pressure Pulse Oximetry 100 99 100 Oxygen Delivery Bag
[2022-09-15 10:30] LABS: Partial Thromboplastin Time 36.6 SECONDS (22.3-36.8)
[2022-09-15] MEDS: PANTOPRAZOLE SODIUM IV 40 MG VIAL IV PUSH (11:07)
[2022-09-15] MEDS: HEPARIN SODIUM 5,000 UNITS/ML VIAL 4000 UNITS IV PUSH ×2 (11:08→23:21)
--- NOTE | 2022-09-15 11:59 | PC.NURSE ---
1157- called and left message on patients father, Jeremy Cason's cell phone to get allergies and med list updated
[2022-09-15 16:48] LABS: Partial Thromboplastin Time 89.8 SECONDS (22.3-36.8)
--- NOTE | 2022-09-15 17:20 | PC.NURSE ---
172-Father and stepmother took patients wallet, clothes, and keys,
[2022-09-15] MEDS: dexmedeTOMIDine 400 MCG/100 ML 400 MCG/100 ML BAG 14.91 MCG IV CONT (18:18)
--- NOTE | 2022-09-15 18:52 | PC.NURSE ---
Form faxed to [facility] for patients medical records.
[2022-09-15 23:10] LABS: Partial Thromboplastin Time 34.7 SECONDS (22.3-36.8)
[2022-09-15] MEDS: HEPARIN SOD/D5W 100 UNITS/ML 25,000 UNITS/250 ML BAG 18 UNITS IV CONT (23:21)
[2022-09-15] MEDS: dexmedeTOMIDine 400 MCG/100 ML 400 MCG/100 ML BAG 17.9 MCG IV CONT (23:26)
[2022-09-16] VITALS (64 sets, daily range): BP systolic 93–190; BP diastolic 67–100; PULSE 64–673; RESP 7–27; TEMP 37.4–38.4; O2SAT 95–100
[2022-09-16] MEDS: dexmedeTOMIDine 400 MCG/100 ML 400 MCG/100 ML BAG 17.9 MCG IV CONT (04:51)
[2022-09-16 06:06] LABS: Alveolar/Arterial O2 Gradient 146.8 mmHg; Base Excess ABG -2.2 mEq/l (+/-2.0); Carboxyhemoglobin 0.3 % THb (0-2.0); Fractional Inspired Oxygen 35 %; HCO3 ABG 20.5 mEq/l (22.0-26.0); Methemoglobin ABG 0.2 %THb (0-1.5); Oxygen Content ABG 18.6 %vol (16.0-22.0); Oxygen Saturation ABG 94.7 % (95.0-100.0); Oxyhemoglobin 93.4 % THb (90.0-100.0); PCO2 ABG 29.9 mmHg (35.0-45.0); PO2 FiO2 Ratio Arterial Blood 1.94 %; Reduced Hemoglobin 6.1 %THb (0-5.0); Total Hemoglobin 14.2 g/dL (12.0-18.0); pH ABG 7.455 (7.350-7.450)
[2022-09-16 06:07] LABS: Basophils Absolute Auto 0.1 K/mm3 (0.0-0.1); Basophils Percent Auto 0.6 % (0.2-1.2); Eosinophils Absolute Auto 0.1 K/mm3 (0-0.3); Eosinophils Percent Auto 1.1 % (0-4.4); Hematocrit 38.8 % (42.0-52.0); Hemoglobin 13.5 g/dL (14.0-18.0); Immature Granulocyte Absolute 0.03 K/mm3 (0.00-0.031); Immature Granulocyte Percent A 0.3 % (0-0.5); Lymphocytes Percent Auto 12.5 % (18.3-44.2); Mean Corpuscular HGB Conc 34.8 g/dl (32-36); Mean Corpuscular Hemoglobin 29.9 pg (26-34); Mean Corpuscular Volume 85.8 fl (80-100); Mean Platelet Volume 10.5 fl (7.4-10.4); Monocytes Percent Auto 11.4 % (2.6-8.5); Neutrophils Absolute Auto 6.5 K/mm3 (1.3-6.7); Neutrophils Percent Auto 74.1 % (45.5-73.1); Platelet Count Result 184 k/mm3 (150-375); Red Blood Count 4.52 M/mm3 (4.6-6.20); Red Cell Distribution Width 13.4 % (11.5-14.5); White Blood Count 8.8 K/mm3 (4.5-10.0)
[2022-09-16 06:08] LABS: Modified Allen's Test Unable to perform; Site Drawn RIGHT RADIAL
[2022-09-16 06:09] LABS: Arterial Blood Gas PEEP 6 cmH2O; Arterial Blood Gas Tidal Volume 500 ml; Arterial Blood Gas Vent Mode CMV; Arterial Blood Gas Ventilator rate 15 /MIN; Device VENTILATOR
[2022-09-16 06:13] LABS: Alanine Aminotransferase 150 U/L (6-50); Albumin Level 3.8 g/dL (3.5-5.1); Alkaline Phosphatase 55 U/L (38-126); Anion Gap 5 mmol/L (8-16); Aspartate Amino Transferase 92 U/L (17-59); Bilirubin,Total 1.9 mg/dL (0.2-1.3); Blood Urea Nitrogen 26 mg/dL (9-20); Calcium 8.5 mg/dL (8.4-10.2); Carbon Dioxide 25 mmol/L (22-30); Chloride 109 mmol/L (98-107); Estimated CRCL calculation 71 ml/min; Estimated Glomerular Filt Rate 53; Glucose 149 mg/dL (65-110); Potassium 3.7 mmol/L (3.4-5.0); Sodium 139 mmol/L (137-145)
[2022-09-16 06:21] LABS: Partial Thromboplastin Time 153.1 SECONDS (22.3-36.8)
[2022-09-16] MEDS: MINERAL OIL/WHITE PETROLATUM OINTMENT 1 APPLIC EACH EYE (08:16)
[2022-09-16] MEDS: ATORVASTATIN 40 MG TABLET 80 MG PO (08:16)
[2022-09-16] MEDS: TICAGRELOR 90 MG TABLET PO ×2 (08:16→20:02)
[2022-09-16] MEDS: ASPIRIN 81 MG ENTERIC TABLET PO (08:16)
[2022-09-16] MEDS: PANTOPRAZOLE SODIUM IV 40 MG VIAL IV PUSH (08:16)
[2022-09-16] MEDS: SODIUM CHLORIDE 0.9% IV 1,000 ML 75 ML IV CONT (08:27)
--- NOTE | 2022-09-16 09:01 | WPDINTPN ---
Progress Note: A&P Assessment and Plan (1) Acute respiratory failure: Code(s): J96.00 - Acute respiratory failure, unspecified whether with hypoxia or hypercapnia Status: Acute Assessment and Plan: Acute respiratory failure post cardiac arrest as he became combative and agitated and was intubated on 09/14/2022. -ABGs and chest x-ray reviewed -continue CMV mode of ventilation, peep of 5 on 40% FiO2 -patient currently on Precedex infusion, will wean down further, patient placed on pressure support ventilation, and once more awake will place him on SBT and evaluate for extubation (2) Cardiac arrest with ventricular fibrillation: Code(s): I46.9 - Cardiac arrest, cause unspecified; I49.01 - Ventricular fibrillation Status: Acute Assessment and Plan: Patient presented with VFib arrest, bystander CPR was started, upon arrival of the EMS he was in shock, will VFib rhythm, patient received shock x1 with ROSC, he again went back into VFib and received another shock with ROSC upon arrival to the ED at [facility] -initial EKG in the ER showed massive anterolateral STEMI, patient was taken to cardiac laborer adjustable steel joist patient was taken to the laborer adjustable steel joist where he was found to have multi-vessel disease, LAD occluded is proximal portion with faint collaterals to distal LAD. LAD was thought to be the culprit vessel, the supervisor order takers did attempted to wire the LAD but was unsuccessful, likely suspected secondary to chronic occlusion. Repeat EKG in the laborer adjustable steel joist table showed resolution of ST elevations. LVEDP was 19 mmHg -cardiology following closely, also tried to transfer the patient to [facility] which is currently full is not accepting nonemergency patient's, transfer was per family request (3) STEMI (ST elevation myocardial infarction): Code(s): I21.3 - ST elevation (STEMI) myocardial infarction of unspecified site Status: Acute Assessment and Plan: ST-elevation [place] seen on initial EKGs, repeat EKG showed resolution of the ST-elevation [place] -continue heparin infusion per Cardiology -aspirin, statin, Brilinta -09/15/2022 echocardiogram showed the EF of 40-45%, severe LV hypertrophy with normal size and hypokinesia of the distal anterior wall and apex, mild sclerosis of the aortic valve (4) Electrolyte imbalance: Code(s): E87.8 - Other disorders of electrolyte and fluid balance, not elsewhere classified Status: Acute Assessment and Plan: Patient was hypokalemic on admission, will replete potassium -will maintain potassium level > 4.0 (5) Hyperlipidemia: Code(s): E78.5 - Hyperlipidemia, unspecified Status: Acute Assessment and Plan: continue high-dose atorvastatin (6) Acute kidney injury: Code(s): N17.9 - Acute kidney failure, unspecified Status: Acute Assessment and Plan: Patient presented with acute kidney injury with elevated creatinine of 1.5 on admission, likely related to STEMI, VFib arrest -creatinine remains 1.5, will give gentle IV fluids hydration -continue to monitor urine output, renal function and electrolytes Plan DVT prophylaxis: On heparin infusion Stress ulcer prophylaxis: Protonix Nutrition: If patient does not get extubated today will start tube feeds Code Status: Full code Critical Care Time Spent: 33 minutes Due to a high probability of clinically significant, life threatening deterioration, the patient required my highest level of preparedness to intervene emergently and I personally spent this critical care time directly and personally managing the patient. This critical care time included obtaining a history; examining the patient; pulse oximetry; ordering and review of studies; arranging urgent treatment with development of a management plan; evaluation of patient's response to treatment; frequent reassessment; and discussions with other providers. It was exclusive of separately billable procedures and treating ot
--- NOTE | 2022-09-16 09:34 | PM.PNCARD ---
Progress Note: A&P Assessment and Plan (1) STEMI (ST elevation myocardial infarction): Code(s): I21.3 - ST elevation (STEMI) myocardial infarction of unspecified site Status: Acute Assessment and Plan: Presented following cardiac arrest. He was found to be in Vfib, achieved ROSC after 1 shock, went back into VF requiring another shock and had ROSC upon arrival to [place] ED. EKG showed massive anterolateral STEMI. He was taken emergently to the cardiac tailings dam laborer where angiogram revealed multivessel disease. LAD lesion thought to be culprit and attempts were made at PCI, however those attempts were unsuccessful. Repeat EKG in the tailings dam laborer showed resolution of ST elevations. He was taken to the ICU in stable condition with plan for medical management and outpatient referral for CTS. Will discontinue heparin drip at this point Continue ASA Continue Brilinta Continue statin Echo showed mild reduction in LVSF, EF 45%. Severe left ventricular hypertrophy with normal size and hypokinesia of the distal anterior wall and apex. No significant valvular abnormalities. (2) Cardiac arrest with ventricular fibrillation: Code(s): I46.9 - Cardiac arrest, cause unspecified; I49.01 - Ventricular fibrillation Status: Acute Assessment and Plan: As above. He had a K+ of 2.9 on admission with underlying multivessel CAD which may have been the impetus for his arrest. Subjective Date/time seen: 09/16/22 09:34 Cardiology follow up for cardiac arrest, STEMI, CAD no acute events overnight. Remains intubated and sedated. Hoping to be able to extubate today. Review of Systems Review of Systems: ROS unobtainable: Yes unobtainable due to endotracheal tube and unobtainable due to medical condition Exam Const: Other: Critically ill, intubated. HENMT: Head: normal to inspection Other: OETT in place Eyes: General: appearance normal, both eyes and all related structures Resp: Effort & Inspection: other (mechanically ventilated) Auscultation: clear to auscultation bilaterally Cardio: Rate: regular rate Rhythm: regular rhythm Heart sounds: no murmurs Urinary Catheter: Urinary Catheter: patent and draining Skin: General skin exam: normal color Other: R groin arterial insertion site free from bleeding, hematoma. Neuro: Other: Cannot assess due to intubation/sedation status Extrem: Other: no lower extremity edema Psych: Appearance: grossly normal Other: Cannot assess due to intubation/sedation status Objective Data Vital Signs Vital Signs: Vital Signs - 24 hr 09/15/22 10:00 09/15/22 10:15 09/15/22 10:34 Temperature Pulse Rate 80 96 90 Respiratory Rate 20 Blood Pressure Pulse Oximetry 97 Oxygen Delivery Mechanical Ventilation Fraction of Inspired Oxygen 40 09/15/22 09:45 09/15/22 10:00 09/15/22 10:01 Temperature 37.8 C H 37.8 C H 37.8 C H Pulse Rate 88 113 H 107 H Respiratory Rate 17 Blood Pressure 188/98 H Pulse Oximetry 96 97 98 Oxygen Delivery Fraction of Inspired Oxygen 09/15/22 10:15 09/15/22 10:30 09/15/22 10:45 Temperature 38.0 C H 37.9 C H 37.8 C H Pulse Rate 104 H 89 88 Respiratory Rate 15 14 Blood Pressure Pulse Oximetry 97 95 95 Oxygen Delivery Fraction of Inspired Oxygen 09/15/22 11:00 09/15/22 11:13 09/15/22 11:15 Temperature 37.7 C H 37.6 C 37.6 C Pulse Rate 85 85 83 Respiratory Rate 15 13 18 Blood Pressure 113/79 Pulse Oximetry 95 96 96 Oxygen Delivery Fraction of Inspired Oxygen 09/15/22 12:00 09/15/22 12:00 09/15/22 11:30 Temperature 37.5 C Pulse Rate 78 81 Respiratory Rate 17 18 Blood Pressure Pulse Oximetry 96 96 Oxygen Delivery Mechanical Ventilation Fraction of Inspired Oxygen 40 40 09/15/22 11:45 09/15/22 12:00 09/15/22 12:01 Temperature 37.5 C 37.4 C 37.5 C Pulse Rate 80 77 77 Respiratory Rate 18 17 17 Blood Pressure 103/70 Pulse Oximetry 96 96 95
--- NOTE | 2022-09-16 09:35 | ECG_ITS ---
Measurements Intervals [place] Rate: 82 P: 46 [place]: 163 QRS: 28 QRSD: 96 T: 148 QT: 389 QTc: 457 Interpretive Statements SINUS RHYTHM LEFT VENTRICULAR HYPERTROPHY WITH ST-T CHANGE ANTEROSEPTAL INFARCT, PROBABALY RECENT ABNORMAL ECG COMPARED TO ECG 09/14/2022 17:18:25 NO SIGNIFICANT CHANGES Electronically Signed On 09-16-2022 12:42:11 CDT by Newton Rider D.O.
[2022-09-16] MEDS: POTASSIUM CHLORIDE 20 MEQ PACKET (FOR LIQUID) 40 MEQ FEED TUBE (10:07)
[2022-09-16 10:28] LABS: Alveolar/Arterial O2 Gradient 145.3 mmHg; Base Excess ABG -1.6 mEq/l (+/-2.0); Fractional Inspired Oxygen 35 %; HCO3 ABG 20.7 mEq/l (22.0-26.0); Oxygen Content ABG 19.3 %vol (16.0-22.0); Oxygen Saturation ABG 95.4 % (95.0-100.0); Oxyhemoglobin 93.6 % THb (90.0-100.0); PCO2 ABG 28.9 mmHg (35.0-45.0); PO2 ABG 70.7 mmHg (80.0-100.0); PO2 FiO2 Ratio Arterial Blood 2.02 %; Total Hemoglobin 14.7 g/dL (12.0-18.0); pH ABG 7.472 (7.350-7.450)
[2022-09-16 10:30] LABS: Arterial Blood Gas PEEP 5 cmH2O; Arterial Blood Gas Pressure Support 8 cmH2O; Arterial Blood Gas Vent Mode SPONTANEOUS; Device VENTILATOR; Modified Allen's Test Pass; Site Drawn RIGHT RADIAL
--- NOTE | 2022-09-16 12:04 | PCFNICU ---
ICU Rounding Note: Pt current nutrition is NPO. Last recorded weight is 119.2 kg. Bowel Motility:No BM reported. Labs Reviewed:Cr 1.4,GFR 53, BUN 26 Meds Noted:Heparin,NS, Protonix Skin: WNL Additional Notes: Patient extubated today. Diet order: NPO. Plan is to advance diet as tolerated per MD orders. Following in ICU rounds.
[2022-09-16 14:30] LABS: Partial Thromboplastin Time 54.4 SECONDS (22.3-36.8)
[2022-09-16] MEDS: LABETALOL HCL INJ 100 MG/20 ML VIAL 10 MG IV PUSH (23:56)
[2022-09-17] VITALS (113 sets, daily range): BP systolic 40–199; BP diastolic 18–170; PULSE 68–105; RESP 6–28; TEMP 37.2–38.3; O2SAT 92–100
[2022-09-17] MEDS: lisinopriL 20 MG TABLET 40 MG PO (03:58)
--- NOTE | 2022-09-17 04:01 | PM.PNCARD ---
Progress Note: A&P Assessment and Plan (1) Cardiac arrest with ventricular fibrillation: Code(s): I46.9 - Cardiac arrest, cause unspecified; I49.01 - Ventricular fibrillation Status: Acute Plan 51-year-old man who was rescued from out of hospital VFib arrest. Emergency catheterization was done as the original diagnostic impression was that of STEMI. Lad was found to be in apparent chronic occlusion after the major diagonal branch. She does have mild systolic LV dysfunction and other disease as mentioned in the catheterization report. Ultimate plan is to consider surgical revascularization. Patient is extubated as of yesterday. No complaints this morning is significantly hypertensive today. THOMAS-inhibitor ordered per the hospital team. I am going to also start him on some metoprolol since he obviously has coronary disease and has had a out of hospital VF arrest. Patient is continued on dual anti-platelet therapy per my partner's recommendation from the physical laboratory assistant note. Statin is also indicated. Marshall Padilla MD [facility] Subjective Date/time seen: Date of service:09/17/22 04:01 Interval history: Follow-up visit in this 51-year-old man with: Out of hospital VFib arrest. Patient declared STEMI upon admission and found to have GOLD LEAF GILDER of the LAD after the major diagonal branch. Patient has significant disease in the diagonal, distal circumflex and distal RCA. He was significantly hypokalemic on admission as well. Patient finally extubated yesterday. Today he is awake and responds to questions appropriately. Significantly hypertensive this morning. Exam Const: General: comfortable and no acute distress Other: Obese white male supine in the ICU bed no complaints at this time HENMT: Mouth: Yes moist mucous membranes Eyes: Sclera: sclerae normal Neck: Neck: supple and no JVD Other: carotid pulses unremarkable Resp: Effort & Inspection: normal respiratory effort Other: few scattered rhonchi otherwise clear breath sounds Cardio: Rate: regular rate Rhythm: regular rhythm Other: no murmur no gallop GI: GI Palp: Yes Soft to palpation Auscultation: normal bowel sounds Skin: General skin exam: normal color Neuro: Other: patient is responsive and alert Extrem: Other: no edema, adequate pulses Objective Data Vital Signs Vital Signs: Vital Signs - 24 hr 09/16/22 04:51 09/16/22 04:51 09/16/22 06:00 Temperature Pulse Rate 68 68 69 Respiratory Rate 19 19 Blood Pressure Pulse Oximetry Oxygen Delivery Oxygen Flow Rate Fraction of Inspired Oxygen 09/16/22 06:00 09/16/22 06:09 09/16/22 05:00 Temperature 38.2 C H Pulse Rate 69 70 72 Respiratory Rate 15 15 Blood Pressure 110/77 Pulse Oximetry 96 96 Oxygen Delivery Mechanical Ventilation Oxygen Flow Rate Fraction of Inspired Oxygen 35 09/16/22 08:07 09/16/22 09:21 09/16/22 10:57 Temperature 38.4 C H Pulse Rate 71 75 Respiratory Rate Blood Pressure Pulse Oximetry 100 97 Oxygen Delivery Mechanical Ventilation Mechanical Ventilation Oxygen Flow Rate Fraction of Inspired Oxygen 35 35 09/16/22 10:47 09/16/22 11:04 09/16/22 08:00 Temperature Pulse Rate 91 87 Respiratory Rate 18 Blood Pressure Pulse Oximetry 100 98 Oxygen Delivery Nasal Cannula Oxygen Flow Rate 3 Fraction of Inspired Oxygen 35 09/16/22 05:03 09/16/22 07:00 09/16/22 07:55 Temperature 38.2 C H 37.8 C H 37.6 C H Pulse Rate 69 66 66 Respiratory Rate 15 16 14 Blood Pressure Pulse Oximetry 100 96 96 Oxygen Delivery Oxygen Flow Rate Fraction of Inspired Oxygen 09/16/22 08:36 09/16/22 09:16 09/16/22 09:37 Temperature 37.7 C H 37.9 C H 38.0 C H Pulse Rate 68 73 81 Respiratory Rate 22 H 16 22 H Blood Pressure Pulse Oximetry 96 97 96 Oxygen Delivery Oxygen Flow Rate Fraction of Inspired Oxygen 09/16/22 10:00 09/16/22 10:26 09/16/22 10:35
[2022-09-17 04:44] LABS: Basophils Absolute Auto 0.1 K/mm3 (0.0-0.1); Basophils Percent Auto 0.5 % (0.2-1.2); Eosinophils Absolute Auto 0.1 K/mm3 (0-0.3); Eosinophils Percent Auto 0.6 % (0-4.4); Hematocrit 41.2 % (42.0-52.0); Hemoglobin 14.3 g/dL (14.0-18.0); Immature Granulocyte Absolute 0.03 K/mm3 (0.00-0.031); Immature Granulocyte Percent A 0.3 % (0-0.5); Lymphocytes Absolute Auto 0.71 K/mm3 (0.9-3.2); Lymphocytes Percent Auto 7.5 % (18.3-44.2); Mean Corpuscular HGB Conc 34.7 g/dl (32-36); Mean Corpuscular Hemoglobin 28.9 pg (26-34); Mean Corpuscular Volume 83.2 fl (80-100); Mean Platelet Volume 10.8 fl (7.4-10.4); Monocytes Absolute Auto 0.7 K/mm3 (0.1-0.6); Monocytes Percent Auto 7.4 % (2.6-8.5); Neutrophils Percent Auto 83.7 % (45.5-73.1); Platelet Count Result 203 k/mm3 (150-375); Red Blood Count 4.95 M/mm3 (4.6-6.20); Red Cell Distribution Width 12.8 % (11.5-14.5); White Blood Count 9.5 K/mm3 (4.5-10.0)
[2022-09-17 04:58] LABS: Alanine Aminotransferase 108 U/L (6-50); Albumin Level 4.4 g/dL (3.5-5.1); Alkaline Phosphatase 64 U/L (38-126); Anion Gap 10 mmol/L (8-16); Aspartate Amino Transferase 66 U/L (17-59); Bilirubin,Total 2.1 mg/dL (0.2-1.3); Blood Urea Nitrogen 19 mg/dL (9-20); Calcium 8.7 mg/dL (8.4-10.2); Carbon Dioxide 20 mmol/L (22-30); Chloride 111 mmol/L (98-107); Estimated CRCL calculation 82 ml/min; Estimated Glomerular Filt Rate > 60; Glucose 126 mg/dL (65-110); Magnesium 2.1 mg/dL (1.6-2.3); Phosphorus 2.3 mg/dL (2.5-4.5); Potassium 3.4 mmol/L (3.4-5.0); Sodium 141 mmol/L (137-145)
[2022-09-17] MEDS: METOPROLOL SUCCINATE EXT REL 50 MG TABCR PO ×2 (05:41→09:15)
[2022-09-17] MEDS: POTASSIUM CHLORIDE INJ 40 MEQ in SODIUM CHLORIDE 0.9% IV 500 ML 130 MEQ IVPB (08:29)
[2022-09-17 08:43] LABS: Hepatitis B Surface Antigen Negative (Negative)
[2022-09-17] MEDS: ASPIRIN 81 MG ENTERIC TABLET PO (08:46)
[2022-09-17] MEDS: TICAGRELOR 90 MG TABLET PO ×2 (08:46→20:05)
[2022-09-17] MEDS: ATORVASTATIN 40 MG TABLET 80 MG PO (08:46)
[2022-09-17] MEDS: PANTOPRAZOLE SODIUM IV 40 MG VIAL IV PUSH (08:46)
[2022-09-17 08:49] LABS: HAV RESULT Negative (Negative); Hepatitis B Core IgM Result Negative (Negative)
[2022-09-17 09:00] LABS: Hepatitis C Virus Antibody Negative (Negative)
[2022-09-17] MEDS: hydrALAZINE HCL 20 MG/ML VIAL 10 MG IV PUSH ×2 (10:29→20:07)
--- NOTE | 2022-09-17 12:56 | WPDINTPN ---
Progress Note: A&P Assessment and Plan (1) Acute respiratory failure: Code(s): J96.00 - Acute respiratory failure, unspecified whether with hypoxia or hypercapnia Status: Acute Assessment and Plan: Acute respiratory failure post cardiac arrest as he became combative and agitated and was intubated on 09/14/2022. -successfully extubated on 09/16/2022 -encouraged incentive spirometry -PT/OT to follow patient -up in chair -speech evaluation for swallow test -continue CMV mode of ventilation, peep of 5 on 40% FiO2 -patient currently on Precedex infusion, will wean down further, patient placed on pressure support ventilation, and once more awake will place him on SBT and evaluate for extubation (2) Cardiac arrest with ventricular fibrillation: Code(s): I46.9 - Cardiac arrest, cause unspecified; I49.01 - Ventricular fibrillation Status: Acute Assessment and Plan: Patient presented with VFib arrestx , bystander CPR was started, upon arrival of the EMS his rhythm was VFib, patient received shock x1 with ROSC, he again went back into VFib and received another shock with ROSC upon arrival to the ED at [facility] -initial EKG in the ER showed massive anterolateral STEMI, patient was taken to cardiac laborer orchard patient was taken to the laborer orchard where he was found to have multi-vessel disease, LAD occluded is proximal portion with faint collaterals to distal LAD. LAD was thought to be the culprit vessel, the sweat box attendant did attempted to wire the LAD but was unsuccessful, likely suspected secondary to chronic occlusion. Repeat EKG in the laborer orchard table showed resolution of ST elevations. LVEDP was 19 mmHg -cardiology following closely, also tried to transfer the patient to [facility] which is currently full is not accepting nonemergency patient's, transfer was per family request -patient currently on aspirin, atorvastatin, lisinopril, metoprolol, nifedipine (3) STEMI (ST elevation myocardial infarction): Code(s): I21.3 - ST elevation (STEMI) myocardial infarction of unspecified site Status: Acute Assessment and Plan: ST-elevation [place] seen on initial EKGs, repeat EKG showed resolution of the ST-elevation AZ -continue heparin infusion per Cardiology -aspirin, statin, Brilinta, lisinopril, metoprolol -09/15/2022 echocardiogram showed the EF of 40-45%, severe LV hypertrophy with normal size and hypokinesia of the distal anterior wall and apex, mild sclerosis of the aortic valve (4) Electrolyte imbalance: Code(s): E87.8 - Other disorders of electrolyte and fluid balance, not elsewhere classified Status: Acute Assessment and Plan: Patient was hypokalemic on admission, will replete potassium -will maintain potassium level > 4.0 (5) Hyperlipidemia: Code(s): E78.5 - Hyperlipidemia, unspecified Status: Acute Assessment and Plan: continue high-dose atorvastatin (6) Acute kidney injury: Code(s): N17.9 - Acute kidney failure, unspecified Status: Acute Assessment and Plan: Patient presented with acute kidney injury with elevated creatinine of 1.5 on admission, likely related to STEMI, VFib arrest -creatinine remains 1.5, will give gentle IV fluids hydration -continue to monitor urine output, renal function and electrolytes -creatinine improved to 1.2 after IV hydration (7) Encephalopathy: Code(s): G93.40 - Encephalopathy, unspecified Status: Acute Assessment and Plan: Post cardiac arrest and post extubation encephalopathy -patient is awake, oriented x2, follows commands but is somnolent -CT stat brain has been done, pending report -neurology has been consulted -may require MRI Plan DVT prophylaxis: Stress ulcer prophylaxis: Protonix Nutrition: Speech to evaluate Discussed with patient's father and stepmother and updated with patient's condition and plan of care. I did update them regarding patient having a car
--- NOTE | 2022-09-17 13:58 | WPDNEURCNPN ---
Consult date: 09/17/22 HPI: Lonnie Cason is a 51 year old male admitted to the hospital through the emergency room with history of cardiac arrest reportedly he was at local [facility] when he collapsed bystander provided the CPR he was found to be in VFib by paramedics received defibrillation and went to a normal sinus rhythm with ros see which lasted a short while and then he went back into VFib receives subsequently shock treatment and arrived at the ER being unresponsive though he was subsequently waking up and was combative requiring intubation. Patient does have ongoing history of hypertension and renal stones initial exam in the emergency room was nonfocal he was obviously intubated started on sedative treatment and paralytic treatment routine labs with blood sugar of 254 and potassium only 2.9 chest x-ray with ET tube in appropriate position without pneumothorax EKG without atrial fibrillation admitted to the hospital with STEMI subsequent echocardiogram with severe left ventricular hypertrophy with mild sclerosis of the aortic valve recent PT and OT has been started. [facility] Past Medical History Medical History Hypertension Kidney stones Surgical History Surgical History Surgical history unknown Social History Social History Alcohol intake: unknown Substance use: unknown Lack of Transportation: No Lack of Food: Never True Current Housing: Decline to Answer Concerned About Future Housing: Decline to Answer Difficulty Paying Gas/Electric Bills: Decline to Answer Difficulty Paying for Meds: Decline to Answer Currently Unemployed: Decline to Answer Education: Don't Know Difficulty w/ Childcare or Family Care: Decline to Answer Spiritual care concerns: No Meds Home Medications and Allergies Home Medications Medication Instructions Recorded Confirmed Type Unable to Obtain Home Medications 09/15/22 09/15/22 History Allergies Allergy/AdvReac Type Severity Reaction Status Date / Time No Known Allergies Allergy Verified 09/15/22 14:51 Vital Signs Vital Signs - 24 hr 09/16/22 14:00 09/16/22 14:01 09/16/22 14:05 Temperature 37.4 C 37.4 C Pulse Rate 77 77 81 Respiratory Rate 18 22 H Blood Pressure 130/84 Pulse Oximetry 99 98 Oxygen Delivery 09/16/22 15:58 09/16/22 18:03 09/16/22 18:00 Temperature 38.1 C H Pulse Rate 84 93 Respiratory Rate 10 L 11 L Blood Pressure 126/97 H 128/83 Pulse Oximetry 98 99 Oxygen Delivery 09/16/22 18:00 09/16/22 14:54 09/16/22 15:16 Temperature 37.4 C 37.4 C Pulse Rate 87 78 82 Respiratory Rate 18 21 H Blood Pressure Pulse Oximetry 99 97 Oxygen Delivery 09/16/22 15:33 09/16/22 16:34 09/16/22 16:45 Temperature 37.4 C 37.6 C H 37.6 C Pulse Rate 71 67 78 Respiratory Rate 15 10 L 14 Blood Pressure Pulse Oximetry 97 99 98 Oxygen Delivery 09/16/22 17:00 09/16/22 17:01 09/16/22 17:15 Temperature 37.4 C 37.4 C 37.8 C H Pulse Rate 86 75 89 Respiratory Rate 8 L 10 L 9 L Blood Pressure 148/100 H Pulse Oximetry 99 95 97 Oxygen Delivery 09/16/22 17:30 09/16/22 17:45 09/16/22 18:00 Temperature 37.9 C H 38.0 C H 38.1 C H Pulse Rate 85 87 93 Respiratory Rate 19 Blood Pressure Pulse Oximetry 100 98 99 Oxygen Delivery 09/16/22 18:02 09/16/22 20:00 09/16/22 20:00 Temperature 38.1 C H Pulse Rate 92 90 Respiratory Rate 14 Blood Pressure 128/83 Pulse Oximetry 97 Oxygen Delivery Room Air 09/16/22 20:00 09/16/22 22:00 09/16/22 22:00 Temperature 37.9 C H 37.9 C H Pulse Rate 86 91 91 Respiratory Rate 16 14 Blood Pressure 117/67 124/73 Pulse Oximetry 99 99 Oxygen Delivery 09/16/22 23:56 09/17/22 00:00 09/17/22 00:00 Temperature 37.9 C H Pulse Rate 94 94 Respiratory Rate 12 Blood Pressure 181/98 H
[2022-09-17] MEDS: NIFEdipine 30 MG TAB.ER.24 60 MG PO (14:04)
--- NOTE | 2022-09-17 14:08 | PCSTNOTE ---
Bedside swallowing evaluation. Patient's father and step mother present at bedside. Patient repositioned in bed with help from nursing to achieve upright position. Head of bed elevated. Patient drowsy and needs cues and stimulation (touch, voice) to remain awake. Patient coughed after 3ml amount of water given by spoon. Moderately thickened liquid was then trialed by spoon with no signs of aspiration. Pureed food (applesauce) 5ml bite was given by spoon and no signs of aspiration were observed. Oral peripheral examination performed, patient was noted to have a reddened spot on his tongue (possibly due to biting his tongue or to intubation). Otherwise, oral peripheral exam results are within functional limits. Patient is not following directions with 100 percent accuracy at this time, however. Based on this evaluation, it is recommended that patient receive pureed diet with moderately thickened liquids. Supervision required while eating or drinking due to patient's decreased level of alertness. Swallowing precaution recommendations placed in chart, including no straws or cups, moderately thickened liquids by spoon only. No speech therapy is recommended at this time. Please note that silent aspiration cannot be ruled out at bedside and a modified barium swallow study (MBSS) can be utilized to evaluate silent aspiration. Thank you for the referral of this patient.
--- NOTE | 2022-09-17 14:34 | WPDNEURCNPN ---
Assessment and Plan Assessment and plan (1) Left sided cerebral hemisphere cerebrovascular accident: Code(s): I63.9 - Cerebral infarction, unspecified Status: Acute Plan 1 is status post cardiac arrest with documented occlusion of left anterior descending on cardiac catheterization with faint collaterals were distal L 80 while in the statistical machine mechanic ST-elevation had resolved. 2 left hemispheric stroke subsequent to the cardiac arrest though at present is able to follow the verbal commands appropriately will benefit from the MRI though there is no [place] at this stage is taking Brilinta according 3 final decision by the sap basis administrator for further steps needs to be taken. Discussed with the family Consult date: 09/17/22 HPI: Lonnie Cason is a 51 year old maleAdmitted to the hospital through the emergency room with history of cardiac arrest reportedly he was at local [facility] when he collapsed a bystander provided the CPR he was found to be in VFib by paramedics received defibrillation and went to a normal sinus rhythm which lasted for a short while and then he went back into VFib subsequently received shock treatment arrived at the ER at [facility] in unresponsive condition subsequently he started waking up and was combative requiring intubation. Does have ongoing history of hypertension and renal stones his initial exam in the emergency room was nonfocal he was intubated started sedative treatment paralytic treatment routine labs blood sugar 254 and potassium only 2.9 chest x-ray with the ET tube in appropriate position without pneumothorax EKG without atrial fibrillation admitted to the hospital with STEMI subsequent echocardiogram with severe left ventricular hypertrophy and mild sclerosis of the aortic valve recently PT and OT has been started but fortunately noted to have a stroke for which CT scan of the head was done which documented subtle areas of low attenuation in the left frontal lobe and medial left frontoparietal region may reflect infarct related to recent cardiopulmonary arrest and neuro consultation has been obtained for that particular reason his present medications include aspirin 81 mg daily Brilinta 90 mg q.12 hours atorvastatin 80 mg daily pantoprazole 40 mg IV push every morning metoprolol 50 mg every morning. PMFSH Past Medical History Medical History Hypertension Kidney stones Surgical History Surgical History Surgical history unknown Social History Social History Alcohol intake: unknown Substance use: unknown Lack of Transportation: No Lack of Food: Never True Current Housing: Decline to Answer Concerned About Future Housing: Decline to Answer Difficulty Paying Gas/Electric Bills: Decline to Answer Difficulty Paying for Meds: Decline to Answer Currently Unemployed: Decline to Answer Education: Don't Know Difficulty w/ Childcare or Family Care: Decline to Answer Spiritual care concerns: No Meds Home Medications and Allergies Home Medications Medication Instructions Recorded Confirmed Type Unable to Obtain Home Medications 09/15/22 09/15/22 History Allergies Allergy/AdvReac Type Severity Reaction Status Date / Time No Known Allergies Allergy Verified 09/15/22 14:51 Vital Signs Vital Signs - 24 hr 09/16/22 15:58 09/16/22 18:03 09/16/22 18:00 Temperature 38.1 C H Pulse Rate 84 93 Respiratory Rate 10 L 11 L Blood Pressure 126/97 H 128/83 Pulse Oximetry 98 99 Oxygen Delivery 09/16/22 18:00 09/16/22 14:54 09/16/22 15:16 Temperature 37.4 C 37.4 C Pulse Rate 87 78 82 Respiratory Rate 18 21 H Blood Pressure Pulse Oximetry 99 97 Oxygen Delivery 09/16/22 15:33 09/16/22 16:34 09/16/22 16:45 Temperature 37.4 C 37.6 C H 37.6 C Pulse Rate 71 67 78 Respiratory Rate 15 10 L 1
[2022-09-18] VITALS (52 sets, daily range): BP systolic 126–165; BP diastolic 73–99; PULSE 71–111; RESP 12–28; TEMP 37.1–38.4; O2SAT 96–99
[2022-09-18 04:26] LABS: Basophils Absolute Auto 0.1 K/mm3 (0.0-0.1); Basophils Percent Auto 0.8 % (0.2-1.2); Eosinophils Absolute Auto 0.1 K/mm3 (0-0.3); Eosinophils Percent Auto 0.6 % (0-4.4); Hematocrit 41.8 % (42.0-52.0); Hemoglobin 14.6 g/dL (14.0-18.0); Immature Granulocyte Absolute 0.04 K/mm3 (0.00-0.031); Immature Granulocyte Percent A 0.4 % (0-0.5); Lymphocytes Absolute Auto 0.84 K/mm3 (0.9-3.2); Lymphocytes Percent Auto 8.4 % (18.3-44.2); Mean Corpuscular HGB Conc 34.9 g/dl (32-36); Mean Corpuscular Volume 82.9 fl (80-100); Monocytes Absolute Auto 0.9 K/mm3 (0.1-0.6); Monocytes Percent Auto 8.9 % (2.6-8.5); Neutrophils Absolute Auto 8.1 K/mm3 (1.3-6.7); Neutrophils Percent Auto 80.9 % (45.5-73.1); Platelet Count Result 256 k/mm3 (150-375); Red Blood Count 5.04 M/mm3 (4.6-6.20); Red Cell Distribution Width 13.1 % (11.5-14.5)
[2022-09-18 05:16] LABS: Alanine Aminotransferase 80 U/L (6-50); Albumin Level 4.4 g/dL (3.5-5.1); Alkaline Phosphatase 69 U/L (38-126); Anion Gap 7 mmol/L (8-16); Aspartate Amino Transferase 54 U/L (17-59); Bilirubin,Total 1.9 mg/dL (0.2-1.3); Blood Urea Nitrogen 16 mg/dL (9-20); Carbon Dioxide 22 mmol/L (22-30); Chloride 111 mmol/L (98-107); Estimated CRCL calculation 96 ml/min; Estimated Glomerular Filt Rate > 60; Glucose 132 mg/dL (65-110); Magnesium 2.1 mg/dL (1.6-2.3); Phosphorus 3.1 mg/dL (2.5-4.5); Potassium 3.3 mmol/L (3.4-5.0); Sodium 140 mmol/L (137-145)
--- NOTE | 2022-09-18 07:50 | PM.PNCARD ---
Progress Note: A&P Assessment and Plan (1) Cardiac arrest with ventricular fibrillation: Code(s): I46.9 - Cardiac arrest, cause unspecified; I49.01 - Ventricular fibrillation Status: Acute Plan 51-year-old man with: Multivessel coronary artery disease with out of hospital VF arrest. Emergency angiogram demonstrated what appears to be chronic total occlusion of his LAD after the major diagonal branch. Significant disease in this diagonal as well as in the distal RCA. CABG is being considered following his recovery from this event. Patient was significantly hypertensive yesterday and treated with metoprolol lisinopril as well as 1 dose of long-acting nifedipine. Blood pressure is fine this morning. Because of his mental status not being at baseline CT was done which demonstrates evidence of a CVA which I think we can presume occurred as a consequence of his cardiac arrest. Concept of an agitated saline bubble study was raised by neurological law firm consultant. I do not believe we have a cryptogenic stroke here and I do not really think a bubble study was alter management. I will leave him on his metoprolol today and a lower dose of lisinopril and watch the blood pressure. [facility] prognosis is guarded given his PR, multivessel coronary disease, VF arrest and evidence of ischemic CVA at this point Marshall Padilla MD [facility] Subjective Date/time seen: Date of service:09/18/22 07:50 Interval history: Follow-up visit in this 51-year-old man with: Coronary artery disease with ischemic LV dysfunction and out of hospital VF arrest in the setting of this as well as significant hypokalemia. Patient was extubated a couple of days ago is still in the ICU. Was significantly hypertensive yesterday started on medical treatment for this. Because of mental status be not at his baseline CT was done which demonstrates evidence of an ischemic stroke likely at the time of his VF arrest. Exam Const: General: comfortable and no acute distress Other: Obese white male supine in the ICU bed no complaints at this time HENMT: Head: normal to inspection Mouth: Yes moist mucous membranes Other: OETT in place Eyes: General: appearance normal, both eyes and all related structures Sclera: sclerae normal Neck: Neck: supple and no JVD Other: carotid pulses unremarkable Resp: Effort & Inspection: normal respiratory effort and other (mechanically ventilated) Auscultation: clear to auscultation bilaterally Other: few scattered rhonchi otherwise clear breath sounds Cardio: Rate: regular rate and tachycardic Rhythm: regular rhythm Heart sounds: no murmurs Other: no murmur no gallop GI: Auscultation: normal bowel sounds Urinary Catheter: Urinary Catheter: patent and draining Skin: General skin exam: normal color Other: R groin arterial insertion site free from bleeding, hematoma. Neuro: Other: patient is responsive and alert Extrem: Other: no edema, adequate pulses Psych: Appearance: grossly normal Other: Cannot assess due to intubation/sedation status Objective Data Vital Signs Vital Signs: Vital Signs - 24 hr 09/17/22 09:15 09/17/22 08:00 09/17/22 08:00 Temperature 37.9 C H Pulse Rate 88 88 89 Respiratory Rate 19 12 Blood Pressure Pulse Oximetry 97 94 Oxygen Delivery Room Air 09/17/22 08:04 09/17/22 08:06 09/17/22 08:15 Temperature 37.9 C H 37.9 C H 37.9 C H Pulse Rate 91 87 87 Respiratory Rate 15 19 21 H Blood Pressure 185/96 H 178/98 H Pulse Oximetry 98 96 97 Oxygen Delivery 09/17/22 08:00 09/17/22 08:30 09/17/22 08:45 Temperature 37.9 C H 37.9 C H Pulse Rate 90 91 91 Respiratory Rate 12 16 Blood Pressure Pulse Oximetry Oxygen Delivery 09/17/22 09:00 09/17/22 09:01 09/17/22 09:15 Temperature 37.8 C H 37.8 C H 37.8 C H Pulse Rate 86 88 89 Respiratory Rate 18 21 H 18 Blood Pressure 198/122 H Pulse Oximetry 98 98 98 Oxygen Delivery
[2022-09-18] MEDS: POTASSIUM CHLORIDE INJ 40 MEQ in SODIUM CHLORIDE 0.9% IV 500 ML 130 MEQ IVPB (07:58)
[2022-09-18] MEDS: METOPROLOL SUCCINATE EXT REL 50 MG TABCR PO (08:01)
[2022-09-18] MEDS: ASPIRIN 81 MG ENTERIC TABLET PO (08:02)
[2022-09-18] MEDS: PANTOPRAZOLE SODIUM IV 40 MG VIAL IV PUSH (08:02)
[2022-09-18] MEDS: ATORVASTATIN 40 MG TABLET 80 MG PO (08:02)
[2022-09-18] MEDS: TICAGRELOR 90 MG TABLET PO ×2 (08:02→20:28)
[2022-09-18] MEDS: lisinopriL 10 MG TABLET PO (08:30)
[2022-09-18] MEDS: POTASSIUM CHLORIDE 20 MEQ PACKET (FOR LIQUID) PO (08:32)
--- NOTE | 2022-09-18 09:00 | WPDINTPN ---
Progress Note: A&P Assessment and Plan (1) Acute respiratory failure: Code(s): J96.00 - Acute respiratory failure, unspecified whether with hypoxia or hypercapnia Status: Acute Assessment and Plan: Acute respiratory failure post cardiac arrest as he became combative and agitated and was intubated on 09/14/2022. -successfully extubated on 09/16/2022 -encouraged incentive spirometry -PT/OT to follow patient -up in chair -speech evaluation for swallow test -continue CMV mode of ventilation, peep of 5 on 40% FiO2 -patient currently on Precedex infusion, will wean down further, patient placed on pressure support ventilation, and once more awake will place him on SBT and evaluate for extubation (2) Cardiac arrest with ventricular fibrillation: Code(s): I46.9 - Cardiac arrest, cause unspecified; I49.01 - Ventricular fibrillation Status: Acute Assessment and Plan: Patient presented with VFib arrestx , bystander CPR was started, upon arrival of the EMS his rhythm was VFib, patient received shock x1 with ROSC, he again went back into VFib and received another shock with ROSC upon arrival to the ED [facility] -initial EKG in the ER showed massive anterolateral STEMI, patient was taken to cardiac supervisor dental laboratory patient was taken to the supervisor dental laboratory where he was found to have multi-vessel disease, LAD occluded is proximal portion with faint collaterals to distal LAD. LAD was thought to be the culprit vessel, the piano regulator inspector did attempted to wire the LAD but was unsuccessful, likely suspected secondary to chronic occlusion. Repeat EKG in the supervisor dental laboratory table showed resolution of ST elevations. LVEDP was 19 mmHg -cardiology following closely, also tried to transfer the patient to [facility] which is currently full is not accepting nonemergency patient's, transfer was per family request - (3) STEMI (ST elevation myocardial infarction): Code(s): I21.3 - ST elevation (STEMI) myocardial infarction of unspecified site Status: Acute Assessment and Plan: ST-elevation ID seen on initial EKGs, repeat EKG showed resolution of the ST-elevation ID -status post heparin infusion -patient currently on aspirin, atorvastatin, lisinopril, metoprolol, ticagrelor -09/15/2022 echocardiogram showed the EF of 40-45%, severe LV hypertrophy with normal size and hypokinesia of the distal anterior wall and apex, mild sclerosis of the aortic valve (4) Electrolyte imbalance: Code(s): E87.8 - Other disorders of electrolyte and fluid balance, not elsewhere classified Status: Acute Assessment and Plan: Patient was hypokalemic on admission, will replete potassium -will maintain potassium level > 4.0 (5) Hyperlipidemia: Code(s): E78.5 - Hyperlipidemia, unspecified Status: Acute Assessment and Plan: continue high-dose atorvastatin (6) Acute kidney injury: Code(s): N17.9 - Acute kidney failure, unspecified Status: Acute Assessment and Plan: Patient presented with acute kidney injury with elevated creatinine of 1.5 on admission, likely related to STEMI, VFib arrest -creatinine remains 1.5, will give gentle IV fluids hydration -continue to monitor urine output, renal function and electrolytes -creatinine improved to 1.0 after IV hydration (7) Encephalopathy: Code(s): G93.40 - Encephalopathy, unspecified Status: Acute Assessment and Plan: Post cardiac arrest and post extubation encephalopathy -patient is awake, oriented x2, follows commands but is somnolent -09/17 CT scan of the brain showed left central frontal infarct -appreciate Neurology evaluation recommendation -09/17 carotid Dopplers fullness than 50% stenosis of the right and left internal carotid arteries -neurology has been consulted -MRI of brain on 09/19 Plan DVT prophylaxis: Lovenox Stress ulcer prophylaxis: Protonix Nutrition: Appreciate speech evaluation, patient on heart Wonderloop
--- NOTE | 2022-09-18 12:55 | PCSTNOTE ---
Patient seen for second bedside swallowing evaluation. Previously seen yesterday. Family reportedly is complaining that patient doesn't like pureed food and they are worried because he isn't eating very much. Patient seen bedside, up in chair, sleeping with tray table with two cups of moderately thickened liquids with straws in front of him. Patient woke to my voice, took trials of applesauce by spoon, and small bites of sandwich (given with fingers), and moderately thickened liquids. Patient ate 6 bites of sandwich, chewed and swallowed with delayed oral transit time. One 7th bite patient cleared throat and produced a small unproductive cough. No further bites were given. Moderately thick liquid bolus was given by cup to help clear solid food residue. Patient and family were educated regarding need for caution in advancing diet as patient is a new stroke. Discussed with nurse and MD. Recommendations: minced moist diet with honey thickened liquids. Swallowing precautions placed in chart. Modified barium swallow recommended. Thank you for the referral of this patient.
[2022-09-18] MEDS: ACETAMINOPHEN 325 MG TABLET 650 MG PO (13:45)
[2022-09-18] MEDS: ENOXAPARIN 40 MG/0.4 ML SYRINGE SUB-Q (13:45)
[2022-09-19] VITALS (93 sets, daily range): BP systolic 103–164; BP diastolic 74–108; PULSE 65–111; RESP 9–38; TEMP 36.7–38.6; O2SAT 97–100
[2022-09-19 04:47] LABS: Potassium 3.4 mmol/L (3.4-5.0)
[2022-09-19] MEDS: METOPROLOL SUCCINATE EXT REL 50 MG TABCR PO (08:50)
[2022-09-19] MEDS: ATORVASTATIN 40 MG TABLET 80 MG PO (08:50)
[2022-09-19] MEDS: ENOXAPARIN 40 MG/0.4 ML SYRINGE SUB-Q (08:50)
[2022-09-19] MEDS: TICAGRELOR 90 MG TABLET PO ×2 (08:51→20:08)
[2022-09-19] MEDS: PANTOPRAZOLE SODIUM IV 40 MG VIAL IV PUSH (08:51)
[2022-09-19] MEDS: ASPIRIN 81 MG ENTERIC TABLET PO (08:51)
[2022-09-19] MEDS: lisinopriL 10 MG TABLET PO (08:51)
[2022-09-19] MEDS: POTASSIUM CHLORIDE 20 MEQ PACKET (FOR LIQUID) PO (08:51)
--- NOTE | 2022-09-19 09:15 | PM.PNCARD ---
Progress Note: A&P Assessment and Plan (1) STEMI (ST elevation myocardial infarction): Code(s): I21.3 - ST elevation (STEMI) myocardial infarction of unspecified site Status: Acute Assessment and Plan: Presented following cardiac arrest. He was found to be in Vfib, achieved ROSC after 1 shock, went back into VF requiring another shock and had ROSC upon arrival to [place] ED. EKG showed massive anterolateral STEMI. He was taken emergently to the cardiac laundry laborer where angiogram revealed multivessel disease. LAD lesion thought to be culprit and attempts were made at PCI, however those attempts were unsuccessful. Repeat EKG in the laundry laborer showed resolution of ST elevations. He was taken to the ICU in stable condition with plan for medical management and outpatient referral for CTS. Unfortunately, he now has evidence of a CVA Continue ASA Continue Brilinta Continue statin Echo showed mild reduction in LVSF, EF 45%. Severe left ventricular hypertrophy with normal size and hypokinesia of the distal anterior wall and apex. No significant valvular abnormalities. BP management with lisinopril and metoprolol. BP improving OK to downgrade to IMU (2) Cardiac arrest with ventricular fibrillation: Code(s): I46.9 - Cardiac arrest, cause unspecified; I49.01 - Ventricular fibrillation Status: Acute Assessment and Plan: As above.? He had a K+ of 2.9 on admission with underlying multivessel CAD which may have been the impetus for his arrest.? Subjective Date/time seen: 09/19/22 09:15 Interval history: Follow-up visit in this 51-year-old man with: Coronary artery disease with ischemic LV dysfunction and out of hospital VF arrest in the setting of this as well as significant hypokalemia. Patient was extubated a couple of days ago is still in the ICU. Was significantly hypertensive yesterday started on medical treatment for this. Because of mental status be not at his baseline CT was done which demonstrates evidence of an ischemic stroke likely at the time of his VF arrest. 09/19/2021: No acute events overnight. Feeling well this morning. Passed barium swallow. BP remains above goal but not dangerously elevated. Review of Systems Review of Systems: All systems reviewed & are unremarkable except as noted in HPI and below Exam Const: General: comfortable and no acute distress Other: Obese white male sitting in the chair HENMT: Head: normal to inspection Mouth: Yes moist mucous membranes Eyes: General: appearance normal, both eyes and all related structures Sclera: sclerae normal Neck: Neck: supple and no JVD Other: carotid pulses unremarkable Resp: Effort & Inspection: normal respiratory effort Auscultation: clear to auscultation bilaterally Cardio: Rate: regular rate Rhythm: regular rhythm Heart sounds: no murmurs GI: Auscultation: normal bowel sounds Urinary Catheter: Urinary Catheter: patent and draining Skin: General skin exam: normal color Neuro: Other: patient is responsive and alert Extrem: Other: no edema, adequate pulses Psych: Appearance: grossly normal Mental Status: mental status grossly normal Affect: Indifferent affect present Objective Data Vital Signs Vital Signs: Vital Signs - 24 hr 09/18/22 11:24 09/18/22 13:45 09/18/22 10:01 Temperature 38.4 C H Pulse Rate 111 H Respiratory Rate 20 Blood Pressure Pulse Oximetry Oxygen Delivery Room Air 09/18/22 10:38 09/18/22 10:46 09/18/22 11:16 Temperature Pulse Rate 101 H 92 90 Respiratory Rate 20 12 17 Blood Pressure Pulse Oximetry Oxygen Delivery 09/18/22 11:46 09/18/22 12:01 09/18/22 12:36 Temperature Pulse Rate 100 91 81 Respiratory Rate 26 H 21 H 19 Blood Pressure Pulse Oximetry Oxygen Delivery 09/18/22 13:26 09/18/22 14:43 09/18/22 16:17 Temperature 38.4 C H 38.3 C H 38.1 C H Pulse Rate 102 H 88 76 Respiratory Rate 1
--- NOTE | 2022-09-19 09:45 | PCSTNOTE ---
Please refer to the Modified Barium Swallow Evaluation in the EMR. Swallow ability found to be WNL
--- NOTE | 2022-09-19 12:06 | PCFNICU ---
ICU Rounding Note: Pt current nutrition is to progress to a regular heart healthy diet. Nutrition recommendation: ensure enlive BID Last recorded weight is 111.7 kg. Bowel Motility: +BM 09/19 Labs Reviewed: Hct:41.8, K:3.3 Meds Noted: lovenox Skin: WNL Additional Notes: Pt extubated last week, advanced to a mince and moist diet, MBS today and PROGRESS MAN recommends a regular consistency diet. Intake and appetite are suboptimal. Pt agreed to Ensure Enlive BID. will order Following daily in ICU rounds. Will monitor in ICU rounds and follow up in 3 days
--- NOTE | 2022-09-19 19:18 | PC.NURSE ---
Patient stepmother reported that the patient has [employer] of [place] insurance [facility] member number [id number] group number [id number] Rx Bin [id number] Plan number [id number]
[2022-09-19] MEDS: hydrALAZINE HCL 20 MG/ML VIAL 10 MG IV PUSH ×2 (20:08)
[2022-09-19] MEDS: ACETAMINOPHEN 325 MG TABLET 650 MG PO (23:41)
[2022-09-20] VITALS (13 sets, daily range): BP systolic 128–188; BP diastolic 63–95; PULSE 78–96; RESP 10–18; TEMP 36.9–37.7; O2SAT 97–99
[2022-09-20] MEDS: lisinopriL 10 MG TABLET PO ×2 (08:28→09:50)
[2022-09-20] MEDS: METOPROLOL SUCCINATE EXT REL 50 MG TABCR PO (08:28)
[2022-09-20] MEDS: ASPIRIN 81 MG ENTERIC TABLET PO (08:28)
[2022-09-20] MEDS: ENOXAPARIN 40 MG/0.4 ML SYRINGE SUB-Q (08:28)
[2022-09-20] MEDS: PANTOPRAZOLE SODIUM IV 40 MG VIAL IV PUSH (08:28)
[2022-09-20] MEDS: TICAGRELOR 90 MG TABLET PO ×2 (08:28→20:45)
[2022-09-20] MEDS: ATORVASTATIN 40 MG TABLET 80 MG PO (08:28)
[2022-09-20] MEDS: POTASSIUM CHLORIDE 20 MEQ PACKET (FOR LIQUID) PO (08:28)
--- NOTE | 2022-09-20 08:35 | PM.PNCARD ---
Progress Note: A&P Assessment and Plan (1) STEMI (ST elevation myocardial infarction): Code(s): I21.3 - ST elevation (STEMI) myocardial infarction of unspecified site Status: Acute Assessment and Plan: Presented following cardiac arrest. He was found to be in Vfib, achieved ROSC after 1 shock, went back into VF requiring another shock and had ROSC upon arrival to [place] ED. EKG showed massive anterolateral STEMI. He was taken emergently to the cardiac veterinary laboratory diagnostician where angiogram revealed multivessel disease. LAD lesion thought to be culprit and attempts were made at PCI, however those attempts were unsuccessful. Repeat EKG in the veterinary laboratory diagnostician showed resolution of ST elevations. He was taken to the ICU in stable condition with plan for medical management and outpatient referral for CTS. Unfortunately, he now has evidence of a CVA Continue ASA Continue Brilinta Continue statin Echo showed mild reduction in LVSF, EF 45%. Severe left ventricular hypertrophy with normal size and hypokinesia of the distal anterior wall and apex. No significant valvular abnormalities. BP management with lisinopril and metoprolol. Increase lisinopril to 20mg daily today Discussed his risk for SCD and the concept of a LifeVest for this. Family at bedside for this discussion. He and family would like to proceed with LifeVest Patient and family would like for patient to have his surgical consultation take place at [facility] as he has no family here to help him recover after surgery. ? home tomorrow after he is fitted for LifeVest (2) Cardiac arrest with ventricular fibrillation: Code(s): I46.9 - Cardiac arrest, cause unspecified; I49.01 - Ventricular fibrillation Status: Acute Assessment and Plan: As above.? He had a K+ of 2.9 on admission with underlying multivessel CAD which may have been the impetus for his arrest.? Keep K+ ~4.0. Perhaps add spironolactone if he requires another antihypertensive agent. Subjective Date/time seen: 09/20/22 08:35 Interval history: Follow-up visit in this 51-year-old man with: Coronary artery disease with ischemic LV dysfunction and out of hospital VF arrest in the setting of this as well as significant hypokalemia. Patient was extubated a couple of days ago is still in the ICU. Was significantly hypertensive yesterday started on medical treatment for this. Because of mental status be not at his baseline CT was done which demonstrates evidence of an ischemic stroke likely at the time of his VF arrest. 09/19/2021: No acute events overnight. Feeling well this morning. Passed barium swallow. BP remains above goal but not dangerously elevated. 09/20/2022: Continues to make progress. No complaints today. BP better. Review of Systems Review of Systems: All systems reviewed & are unremarkable except as noted in HPI and below Exam Const: General: comfortable and no acute distress Other: Obese white male lying flat in bed in the supine position HENMT: Head: normal to inspection Mouth: Yes moist mucous membranes Eyes: General: appearance normal, both eyes and all related structures Sclera: sclerae normal Neck: Neck: supple and no JVD Other: carotid pulses unremarkable Resp: Effort & Inspection: normal respiratory effort Auscultation: clear to auscultation bilaterally Other: Cardio: Rate: regular rate Rhythm: regular rhythm Heart sounds: no murmurs GI: Auscultation: normal bowel sounds Skin: General skin exam: normal color Other: R groin arterial insertion site free from bleeding, hematoma. Neuro: Other: patient is responsive and alert Extrem: Other: no edema, adequate pulses Psych: Appearance: grossly normal Mental Status: mental status grossly normal Speech and movement: Slowed speech present (Psych) Affect: Indifferent affect present Objective Data Vital Signs Vital Signs: Vital Signs - 24 hr 09/19/22 08:50 0
--- NOTE | 2022-09-20 13:50 | PCOTNOTE ---
Patient refused treatment this session due to verbalized, I'm exhausted, to tired, not now .
--- NOTE | 2022-09-20 15:53 | PC.NURSE ---
1545- Patient off telemetry to MRI , Cardiology approved and notified
--- NOTE | 2022-09-20 16:12 | PC.NURSE ---
1612- patient back from MRI , telemetry placed back on patient
--- NOTE | 2022-09-20 17:18 | PC.NURSE ---
This patient, Lonnie Cason, was received from ICU on 09/20/22 at 1645. Patient/family oriented to unit policies and routines
--- NOTE | 2022-09-20 20:00 | WPDCN ---
Assessment and Plan Assessment and plan (1) Fever: Code(s): R50.9 - Fever, unspecified Status: Acute Assessment and Plan: He has been running fevers since presentation to the ER, fever curve looks better in the past 24 hours. He gives no history to suggest active infection at this time. He tested negative for influenza and COVID. Chest x-ray shows no acute cardiopulmonary disease. CRP is 3.8 procalcitonin is only 0.4. Blood cultures have been obtained and a urinalysis is pending. No indication for antibiotics. (2) Coronary artery disease: Code(s): I25.10 - Atherosclerotic heart disease of [place] coronary artery without angina pectoris Status: Acute Assessment and Plan: Management per Cardiology. (3) Hypertension: Code(s): I10 - Essential (primary) hypertension Status: Acute Assessment and Plan: Blood pressures have been reasonable. Continue antihypertensives and monitor. (4) Left sided cerebral hemisphere cerebrovascular accident: Code(s): I63.9 - Cerebral infarction, unspecified Status: Acute Assessment and Plan: No gross focal deficits noted on exam today. Plan Thank you for allowing us to participate in this patient's care. Please do not hesitate to contact us with any questions. HPI Data of Consult Date/Time: 09/20/22 21:00 Requesting Physician: Isidro Park MD Consult Narrative Reason for consult: Fever. Narrative: This is a 51-year-old male whom the hospitalist service has been consulted for help working up a fever. Patient provides the following history. He was admitted through the ED on 09/14/2022 after presenting in ventricular fibrillation cardiac arrest from a local restaurant. STEMI was called after return of spontaneous circulation and he was taken immediately to the cardiac cath lab radiology technologist where he was found to have multivessel coronary artery disease. The LAD was occluded in its proximal portion with faint collaterals and it was felt that this was the culprit vessel. Attempt was made to wire the LAD with 2 different wires however they were unable to cross the occlusion and it was felt that this may be more chronic than acute. Echo showed an EF of 45% with severe LVH and hypokinesia of the distal anterior wall and apex. He was eventually extubated and plans were made for outpatient referral for cardiothoracic surgery. He has been running a low-grade fever since evening of 09/17/2022 without obvious source and in this setting we are being consulted. At the time my evaluation he is resting comfortably and has no complaints. He has not been symptomatic with the low-grade fever for well over 24 hours. He endorses a mild sore throat which has been attributed to intubation he also reports having a couple episodes of loose stools each day. He has no other complaints and specifically denies headache, neck ache, sinus congestion, rhinorrhea, cough, nausea, vomiting, and dysuria. He denies joint pain, swelling, and rash. No open wounds. [facility] Past Medical History Medical History Coronary artery disease Hypertension Surgical History Surgical History History of cardiac catheterization (08/2022) History of kidney surgery Left kidney surgery for what sounds like a stricture of some sort. Social History Social History Social History: Surrogate medical decision maker: Beatriz Cason, mother. Code status: Full code. Smoking status: Unknown if ever smoked Alcohol intake: unknown Substance use: unknown Lack of Transportation: No Lack of Food: Never True Current Housing: Decline to Answer Concerned About Future Housing: Decline to Answer Difficulty Paying Gas/Electric Bills: Decline to Answer Difficulty Paying for Meds: Decline to Answer Currently Unemployed:
[2022-09-20 21:43] LABS: Basophils Absolute Auto 0.1 K/mm3 (0.0-0.1); Eosinophils Absolute Auto 0.3 K/mm3 (0-0.3); Eosinophils Percent Auto 4.3 % (0-4.4); Immature Granulocyte Absolute 0.01 K/mm3 (0.00-0.031); Immature Granulocyte Percent A 0.2 % (0-0.5); Lymphocytes Absolute Auto 0.99 K/mm3 (0.9-3.2); Lymphocytes Percent Auto 16.4 % (18.3-44.2); Mean Corpuscular HGB Conc 34.9 g/dl (32-36); Mean Corpuscular Hemoglobin 29.1 pg (26-34); Mean Corpuscular Volume 83.3 fl (80-100); Monocytes Percent Auto 16.7 % (2.6-8.5); Neutrophils Absolute Auto 3.7 K/mm3 (1.3-6.7); Neutrophils Percent Auto 61.4 % (45.5-73.1); Platelet Count Result 246 k/mm3 (150-375); Red Blood Count 5.16 M/mm3 (4.6-6.20); Red Cell Distribution Width 12.9 % (11.5-14.5)
[2022-09-20 21:56] LABS: Alanine Aminotransferase 67 U/L (6-50); Albumin Level 4.5 g/dL (3.5-5.1); Alkaline Phosphatase 64 U/L (38-126); Anion Gap 10 mmol/L (8-16); Aspartate Amino Transferase 56 U/L (17-59); Bilirubin,Total 1.1 mg/dL (0.2-1.3); Blood Urea Nitrogen 21 mg/dL (9-20); CRP 3.8 mg/dL (<1.0); Calcium 9.2 mg/dL (8.4-10.2); Carbon Dioxide 23 mmol/L (22-30); Chloride 102 mmol/L (98-107); Estimated CRCL calculation 78 ml/min; Estimated Glomerular Filt Rate > 60; Glucose 112 mg/dL (65-110); Magnesium 2.1 mg/dL (1.6-2.3); Potassium 3.6 mmol/L (3.4-5.0); Sodium 135 mmol/L (137-145)
[2022-09-20 22:07] LABS: Influenza A QL RT-PCR Negative (Negative); Influenza B QL RT-PCR Negative (Negative); SARS-CoV-2 RNA PCR Negative
[2022-09-20 22:47] LABS: Procalcitonin 0.4 ng/mL
[2022-09-21] VITALS (11 sets, daily range): BP systolic 115–161; BP diastolic 81–111; PULSE 73–697; RESP 16–18; TEMP 36.9–37.2; O2SAT 97–98
[2022-09-21 05:15] LABS: Potassium 3.6 mmol/L (3.4-5.0)
[2022-09-21 06:54] LABS: Appearance Urine Clear (Clear); Bacteria Urine None Seen /hpf; Bilirubin Urine Negative (Negative); Blood Urine Negative (Negative); Color Urine Yellow (Yellow); Glucose Urine UA Negative (Negative); Ketones Urine Negative (Negative); Leukocyte Esterase Ur Negative LEU/UL (Negative); Nitrate Urine Negative (Negative); Non Pathogenic Casts 0-2; Protein Urine Trace mg/dL (Negative); RBC Urine 0-2 /hpf (0-2); Squamous Epithelial Cell Urine None seen /hpf (Few); WBC Urine 0-5 /hpf; pH Urine 5.5 (5.0-9.0)
[2022-09-21 08:23] LABS: Add Urine Microscopic? YES
[2022-09-21] MEDS: ASPIRIN 81 MG ENTERIC TABLET PO (08:30)
[2022-09-21] MEDS: ATORVASTATIN 40 MG TABLET 80 MG PO (08:31)
[2022-09-21] MEDS: METOPROLOL SUCCINATE EXT REL 50 MG TABCR PO (08:31)
[2022-09-21] MEDS: TICAGRELOR 90 MG TABLET PO ×2 (08:31→21:43)
[2022-09-21] MEDS: lisinopriL 20 MG TABLET PO (08:31)
[2022-09-21] MEDS: PANTOPRAZOLE SODIUM IV 40 MG VIAL IV PUSH (08:32)
[2022-09-21] MEDS: POTASSIUM CHLORIDE 20 MEQ PACKET (FOR LIQUID) PO (08:32)
[2022-09-21] MEDS: ENOXAPARIN 40 MG/0.4 ML SYRINGE SUB-Q (08:32)
--- NOTE | 2022-09-21 09:24 | WPDNEURCNPN ---
Assessment and Plan Assessment and plan (1) Acute CVA (cerebrovascular accident): Code(s): I63.9 - Cerebral infarction, unspecified Status: Acute (2) Coronary artery disease: Code(s): I25.10 - Atherosclerotic heart disease of [place] coronary artery without angina pectoris Status: Acute (3) Hypertension: Code(s): I10 - Essential (primary) hypertension Status: Acute (4) Cardiac arrest with ventricular fibrillation: Code(s): I46.9 - Cardiac arrest, cause unspecified; I49.01 - Ventricular fibrillation Status: Acute (5) STEMI (ST elevation myocardial infarction): Code(s): I21.3 - ST elevation (STEMI) myocardial infarction of unspecified site Status: Acute Plan Lonnie Cason is a 51 year old male with a history of CAD and hypertension who presented with cardiac arrest secondary to [place]. Course complicated by cardioembolic stroke, as noted on MRI brain. Patient appears to be at baseline mental status. - Continue Aspirin 81mg - Continue Lipitor 80mg daily - Continue Brilinta 90mg daily - Patient should follow-up with outpatient Neurologist after discharge Consult date: 09/21/22 Reason for consult: Cardiac arrest - stroke HPI: Lonnie Cason is a 51 year old male with a history of CAD and hypertension who presented with v fib arrest. EMS was able to acheive ROSC by the time he arrived to [facility]. Initial EKG in the ER showed anterolateral STEMI so patient was taken to cardiac laborer [place] where he was found to have multi-vessel disease, LAD occlusion in the proximal position. He was initially admitted to the ICU, had to be intubated, but was extubated on 09/16 and has been transferred to the floors. Cardiology has been following. Patient is on Aspirin 81mg daily, Brilinta 90mg, and Lipitor 80mg daily. Patient has been encephalopathic since he was extubated. He had a CT head showed left central/frontal infarct. Carotid dopplers showed <50% stenosis bilaterally. MRI brain showed scattered bihemispheric infarcts, left more than right. He has also been having low grade fevers during this admission, but labs have been unrevealing. Step-mother and father at bedside this morning. They have not noted any deficits. Patient reports some mild word-finding difficulty, but no other focal deficits. Patient will be moving to [place] in the next few weeks. Review of Systems Constitutional: Constitutional: Reports no additional constitutional complaints Eyes: Eyes: Reports no additional eye complaints ENT: Reports system reviewed and no additional complaints, except as documented Cardiovascular: Cardiovascular: Reports no additional cardiovascular complaints Respiratory: Respiratory: Reports no additional respiratory complaints Gastrointestinal: Gastrointestinal: Reports no additional gastrointestinal complaints Genitourinary: Genitourinary: Reports no additional male genitourinary complaints Musculoskeletal: Musculoskeletal: Reports no additional musculoskeletal complaints Integumentary/Breasts: Skin/Breast: Reports erythema Comments: redness at IV site Neurologic: Reports as per HPI Psychiatric: Psychiatric: Reports depression PMFSH Past Medical History Medical History Coronary artery disease Hypertension Surgical History Surgical History History of cardiac catheterization (08/2022) History of kidney surgery Left kidney surgery for what sounds like a stricture of some sort. Social History Social History Social History: Surrogate medical decision maker: Beatriz Cason, mother. Code status: Full code. Smoking status: Unknown if ever smoked Alcohol intake: unknown Substance use: unknown Lack of Transportation: No Lack of Food: Never True Current Housing: Decline to Answer Concerned About Future Housin
[2022-09-21 09:42] LABS: Hemoglobin 14.7 g/dL (14.0-18.0); Mean Corpuscular HGB Conc 33.4 g/dl (32-36); Mean Corpuscular Volume 86.8 fl (80-100); Mean Platelet Volume 10.7 fl (7.4-10.4); Platelet Count Result 239 k/mm3 (150-375); Red Blood Count 5.07 M/mm3 (4.6-6.20)
--- NOTE | 2022-09-21 10:17 | PM.PNCARD ---
Progress Note: A&P Assessment and Plan (1) STEMI (ST elevation myocardial infarction): Code(s): I21.3 - ST elevation (STEMI) myocardial infarction of unspecified site Status: Acute Assessment and Plan: Presented following cardiac arrest. He was found to be in Vfib, achieved ROSC after 1 shock, went back into VF requiring another shock and had ROSC upon arrival to [place] ED. EKG showed massive anterolateral STEMI. He was taken emergently to the cardiac general laborer where angiogram revealed multivessel disease. LAD lesion thought to be culprit and attempts were made at PCI, however those attempts were unsuccessful; likely a chronic occlusion as wire unable to cross lesion. Repeat EKG in the general laborer showed resolution of ST elevations. He was taken to the ICU in stable condition with plan for medical management and outpatient referral for CTS. Unfortunately, he now has evidence of a CVA Continue ASA Continue Brilinta Continue statin Echo showed mild reduction in LVSF, EF 45%. Severe left ventricular hypertrophy with normal size and hypokinesia of the distal anterior wall and apex. No significant valvular abnormalities. BP management with lisinopril and metoprolol. Increased lisinopril to 20mg Discussed his risk for SCD and the concept of a LifeVest for this. Family at bedside for this discussion. He and family would like to proceed with LifeVest Patient and family would like for patient to have his surgical consultation take place at [facility] as he has no family here to help him recover after surgery. Will need LifeVest prior to discharge (2) Cardiac arrest with ventricular fibrillation: Code(s): I46.9 - Cardiac arrest, cause unspecified; I49.01 - Ventricular fibrillation Status: Acute Assessment and Plan: As above.? He had a K+ of 2.9 on admission with underlying multivessel CAD which may have been the impetus for his arrest.? Keep K+ ~4.0. Perhaps add spironolactone if he requires another antihypertensive agent. (3) Fever: Code(s): R50.9 - Fever, unspecified Status: Acute Assessment and Plan: Had low-grade temperatures. Blood cultures are pending. Hospitalist consulted, appreciate recommendations. Clinically, no signs of infection (4) Acute CVA (cerebrovascular accident): Code(s): I63.9 - Cerebral infarction, unspecified Status: Acute Assessment and Plan: Head CT 09/17 showed subtle areas of low attenuation in the left frontal lob and medial left frontoparietal region which may reflect infarct related to recent cardiopulmonary arrest. Neurology consulted, appreciate recommendations Brain MRI 09/21 showed multiple scattered areas of acute infarct in the bilateral MCA distributiions predominantly. Largest areas of infarct are in the left parietal lobe. Given the scattered distribution in bilateral vascular territories, consider proximal source of embolic showering. Given the brain MRI findings, will pursue DE to rule out intracardiac thrombus. Discussed the procedure with the patient, including procedure indications, procedure details, risks vs benefits. Patient agrees to proceed. DE scheduled with Anesthesia team on 09/22 at 10AM. Patient to be NPO at midnight. Subjective Date/time seen: 09/21/22 10:17 Interval history: Reason for visit: Cardiac arrest Patient without complaints this morning. Denies chest pain, shortness of breath, or other cardiac symptoms. Telemetry without any arrhythmias. Review of Systems Review of Systems: 8 point ROS obtained. Negative, unless stated in HPI. Exam Const: General: comfortable and no acute distress Other: Obese white male lying flat in bed in the supine position HENMT: Head: normal to inspection Mouth: Yes moist mucous membranes Eyes: General: appearance normal, both eyes and all related structures Sclera: sclerae normal Neck: Neck: supple and no JVD Resp: Effort & Inspectio
--- NOTE | 2022-09-21 13:26 | PC.NURSE ---
On 09/21/22, the student, [Vilma Fernandez], provided care and completed [facility] documentation on this patient. I have reviewed the student's documentation and agree with the findings.
--- NOTE | 2022-09-21 14:20 | PM.IMPN ---
Progress Note: A&P Assessment and Plan (1) Fever: Code(s): R50.9 - Fever, unspecified Status: Acute Assessment and Plan: patient was fevers since presentation on 09/17 with T-max 101.5?. Fever curve is trending down and patient has been afebrile >24 hours. No signs/ symptoms to indicate underlying infectious etiology. UA without concerns for infection. Patient is negative for COVID and influenza. CXR with no acute cardiopulmonary disease. CRP 3.8, procalcitonin 0.4. Blood cultures pending, negative to date. There is no indication for antibiotics. monitor fever curve (2) Coronary artery disease: Code(s): I25.10 - Atherosclerotic heart disease of [place] coronary artery without angina pectoris Status: Acute Assessment and Plan: Management per Cardiology. (3) Hypertension: Code(s): I10 - Essential (primary) hypertension Status: Acute Assessment and Plan: Blood pressures have been reasonable. Continue antihypertensives and monitor. (4) Left sided cerebral hemisphere cerebrovascular accident: Code(s): I63.9 - Cerebral infarction, unspecified Status: Acute Assessment and Plan: No gross focal deficits noted on exam today. management per Cardiology and Neurology Plan Subjective Date/time seen: 09/21/22 14:20 Interval history: date of service: 09/21/2022 Lonnie biswas is a 51-year-old male with a history of CAD and hypertension who has been hospitalized for cardiac arrest and is being seen in consultation for medical management. the patient is feeling well today, only complaint is feeling sleepy. Was fitted for his LifeVest this morning and is not having any issues at this time. Patient denies any episodes of fevers. Denies chills. Denies dysuria. Denies diarrhea. Denies abdominal pain. No nausea or vomiting. Tolerating his diet. no chest pain at this time. Denies shortness of breath. Review of Systems Review of Systems: All systems reviewed & are unremarkable except as noted in HPI and below Exam Narrative: General: Well-nourished, well-appearing 51-year-old male, sitting up in bed, comfortable, NARD Neuro: awake, alert and oriented x4, speech clear, no focal neuro deficits noted HEENMT: normocephalic, atraumatic, EOMI, sclerae anicteric, moist oral mucosa Respiratory: clear to auscultation bilaterally, nonlabored breathing Cardio: regular rate, regular rhythm Abdomen: nondistended, normoactive bowel sounds, soft, nontender to palpation Extremities: no edema, erythema, or tenderness to palpation, DP pulses 2+ bilaterally Skin: no rashes or lesions, warm and dry Psych: appropriate mood and affect, judgment and insight intact Objective Data Vital Signs Vital Signs: Vital Signs - 24 hr 09/20/22 17:16 09/20/22 17:15 09/20/22 19:28 Temperature 98.5 F 99.7 F H Pulse Rate 79 78 82 Respiratory Rate 16 18 Blood Pressure 151/91 H 136/76 Pulse Oximetry 98 98 Oxygen Delivery 09/20/22 20:00 09/20/22 23:32 09/21/22 00:00 Temperature 99.5 F Pulse Rate 82 80 Respiratory Rate Blood Pressure Pulse Oximetry Oxygen Delivery 09/21/22 04:00 09/21/22 08:31 09/21/22 08:30 Temperature Pulse Rate 87 78 78 Respiratory Rate Blood Pressure 161/111 H Pulse Oximetry Oxygen Delivery 09/21/22 12:02 09/21/22 08:00 09/21/22 08:00 Temperature 98.5 F Pulse Rate 85 73 Respiratory Rate Blood Pressure Pulse Oximetry 97 Oxygen Delivery Room Air 09/21/22 12:00 09/21/22 14:08 Temperature 98.5 F Pulse Rate 86 80 Respiratory Rate 16 Blood Pressure 115/81 Pulse Oximetry 97 Oxygen Delivery Intake/Output Intake/Output: Intake & Output 09/18/22 09/19/22 09/20/22 09/21/22 23:59 23:59 23:59 23:59 Intake Total 200 350 520 600 Output Total 2200 1550 775 500 Balance -1999 -1200 -255 100 Meds/Results Medications: Active Medications
[2022-09-21] MEDS: MAGNES & ALUM HYD/SIMETH/DIPHENHYD/LIDOCAINE 119 ML MOUTHWASH BY MOUTH (21:43)
[2022-09-22] VITALS (17 sets, daily range): BP systolic 99–144; BP diastolic 62–89; PULSE 59–86; RESP 12–24; TEMP 36.4–37.2; O2SAT 96–100
[2022-09-22] MEDS: MAGNES & ALUM HYD/SIMETH/DIPHENHYD/LIDOCAINE 119 ML MOUTHWASH BY MOUTH ×4 (00:48→20:25)
[2022-09-22 05:07] LABS: Hematocrit 43.4 % (42.0-52.0); Hemoglobin 14.7 g/dL (14.0-18.0); Mean Corpuscular HGB Conc 33.9 g/dl (32-36); Mean Corpuscular Hemoglobin 28.9 pg (26-34); Mean Corpuscular Volume 85.3 fl (80-100); Mean Platelet Volume 10.1 fl (7.4-10.4); Platelet Count Result 253 k/mm3 (150-375); Red Blood Count 5.09 M/mm3 (4.6-6.20); Red Cell Distribution Width 12.6 % (11.5-14.5); White Blood Count 7.2 K/mm3 (4.5-10.0)
[2022-09-22 05:23] LABS: Anion Gap 8 mmol/L (8-16); Blood Urea Nitrogen 22 mg/dL (9-20); Carbon Dioxide 26 mmol/L (22-30); Chloride 103 mmol/L (98-107); Estimated CRCL calculation 69 ml/min; Estimated CRCL calculation 74 ml/min; Estimated Glomerular Filt Rate 53; Estimated Glomerular Filt Rate 58; Glucose 121 mg/dL (65-110); Potassium 4.2 mmol/L (3.4-5.0); Sodium 137 mmol/L (137-145)
[2022-09-22] MEDS: lisinopriL 20 MG TABLET PO (08:22)
[2022-09-22] MEDS: METOPROLOL SUCCINATE EXT REL 50 MG TABCR PO (08:22)
[2022-09-22] MEDS: ATORVASTATIN 40 MG TABLET 80 MG PO (08:22)
[2022-09-22] MEDS: PANTOPRAZOLE SODIUM IV 40 MG VIAL IV PUSH (08:22)
[2022-09-22] MEDS: ENOXAPARIN 40 MG/0.4 ML SYRINGE SUB-Q (08:22)
[2022-09-22] MEDS: TICAGRELOR 90 MG TABLET PO ×2 (08:22→20:25)
[2022-09-22] MEDS: ASPIRIN 81 MG ENTERIC TABLET PO (08:22)
--- NOTE | 2022-09-22 09:24 | WPDANESEPPF ---
Anes - Initial Pre Proc Eval Procedure: Operation Date: 09/14/22 15:45 Proposed Procedures p Left Heart Cath - Isidro Park MD Operation Date: 09/22/22 10:00 Proposed Procedures p Trans Esophageal Echo - Isidro Park MD Date/Time: 09/22/22 09:24 Surgeon: Isidro Park MD Pre Op Diagnosis: Cardiac arrest Patient Data Age: 51 Gender: M Height: 1.75 m Weight: 114.9 kg Last Vital Signs Temp 36.6 C 09/22/22 05:19 Pulse 64 09/22/22 08:22 Resp 16 09/22/22 07:32 BP 141/62 H 09/22/22 07:32 Pulse Ox 97 09/22/22 07:32 O2 Del Method Room Air 09/21/22 21:35 O2 Flow Rate 3 09/16/22 11:04 FiO2 35 09/16/22 09:21 Allergies Allergy/AdvReac Type Severity Reaction Status Date / Time No Known Allergies Allergy Verified 09/15/22 14:51 Home Medications Medication Instructions Recorded Confirmed Type Unable to Obtain Home Medications 09/15/22 09/15/22 History Laboratory Tests 09/21/22 09/22/22 09/22/22 04:45 04:51 04:51 WBC 6.0 K/mm3 K/mm3 7.2 K/mm3 K/mm3 (4.5-10.0) (4.5-10.0) RBC 5.07 M/mm3 M/mm3 5.09 M/mm3 M/mm3 (4.6-6.20) (4.6-6.20) Hgb 14.7 g/dL g/dL 14.7 g/dL g/dL (14.0-18.0) (14.0-18.0) Hct 44.0 % % 43.4 % % (42.0-52.0) (42.0-52.0) MCV 86.8 fl fl 85.3 fl fl (80-100) (80-100) MCH 29.0 pg pg 28.9 pg pg (26-34) (26-34) MCHC 33.4 g/dl g/dl 33.9 g/dl g/dl (32-36) (32-36) RDW 13.0 % % 12.6 % % (11.5-14.5) (11.5-14.5) Plt Count 239 k/mm3 k/mm3 253 k/mm3 k/mm3 (150-375) (150-375) MPV 10.7 fl H fl 10.1 fl fl (7.4-10.4) (7.4-10.4) Sodium 137 mmol/L mmol/L (137-145) Potassium 4.2 mmol/L mmol/L (3.4-5.0) Chloride 103 mmol/L mmol/L (98-107) Carbon Dioxide 26 mmol/L mmol/L (22-30) Anion Gap 8 mmol/L mmol/L (8-16) BUN 22 mg/dL H mg/dL (9-20) Creatinine 1.40 mg/dL H mg/dL (0.7-1.3) Estim Creat Clear Calc 69 ml/min ml/min Estimated GFR 53 L (59 - ) Glucose 121 mg/dL H mg/dL (65-110) Calcium 9.0 mg/dL mg/dL (8.4-10.2) 09/22/22 04:51 WBC RBC Hgb Hct MCV MCH MCHC RDW Plt Count MPV Sodium Potassium Chloride Carbon Dioxide Anion Gap BUN Creatinine 1.30 mg/dL mg/dL (0.7-1.3) Estim Creat Clear Calc 74 ml/min ml/min Estimated GFR 58 L (59 - ) Glucose Calcium Patient hx anesthesia problems: none Family hx anesthesia problems: none Results Review: All pre-operative results and documents have been reviewed as part of the pre-operative evaluation. [facility], LAT[facility] Past Medical History Medical History Coronary artery disease Hypertension Surgical History Surgical History History of cardiac catheterization (08/2022) History of kidney surgery Left kidney surgery for what sounds like a stricture of some sort. Social History Social History Social History: Surrogate medical decision maker: Beatriz Cason, mother. Code status: Full code. Smoking status: Unknown if ever smoked Alcohol intake: unknown Substance use: unknown Lack of Transportation: No Lack of Food: Never True Current Housing: Decline to Answer Concerned About Future Housing: Decline to Answer Difficulty Paying Gas/Electric Bills: Decline to Answer Difficulty Paying for Meds: Decline to Answer Currently Unemployed: Decline to Answer Education: Don't Know Difficulty w/ Childcare or Family Care: Decline to Answer Spiritual care concerns: No Anes - Eval Final PreProcedure Day of Procedure 09/22/22 09:24 Patient weight: obese Heart: regular rate and r
--- NOTE | 2022-09-22 10:14 | P.PCNTEE_ITS ---
DE TransEsophageal Echocardiogram Date of procedure: 09/22/22 Procedure Type: Date of Procedure: 09/22/2022 Brief History Of Present Illness: Patient is a 51-year-old male who is referred for DE for stroke evaluation. Procedure In Detail: After verbal and written informed consent was obtained, the patient risks, benefits, and alternatives explained in detail. The patient agreed to proceed with the plan of care as outlined above.?The patient was evaluated at bedside. The posterior oropharynx, neck, and jaw angle all within normal limits on examination. Lungs were clear to auscultation. Anesthesia done by the Anesthesia team. The patient was then placed in the appropriate 30 to 45 degree angle supine position at a slight left lateral decubitus position.?Patient was monitored throughout the study with telemetry, oxygen saturation, end-tidal CO2 monitoring, blood pressure, heart rate, and respirations.? The posterior hypopharynx was then locally anesthetized using repeated administration of Hurricaine spray as well as gargled viscous lidocaine.? After local anesthetic of the posterior hypopharynx was achieved and the oral bite block placed, moderate sedation was administered.? After confirmation of adequate moderate sedation, the transesophageal echocardiogram probe was advanced through the oral bite block into the posterior hypopharynx and into the esophagus easily and without complication.? Multiple, multiplanar echocardiographic images were obtained in multiple standard re- projections.? Pulsed wave, continuous-wave, and color-flow Doppler were utilized in conjunction with this study.? At the con clusion of the study, the transesophageal echocardiogram probe was removed easily and without complication.? The patient tolerated the procedure well without difficulty.? Patient was in sinus rhythm throughout the study. Moderate Sedation/Anesthesia administration: Sedation done by Anesthesia team. Procedure start time: 09:21 Procedure end time: 09:39 FINDINGS: LEFT VENTRICLE: Normal left ventricular size. Left ventricular ejection fraction estimated at 45-50%. RIGHT VENTRICLE:? Size and systolic function within normal limits. LEFT ATRIUM: Mildly enlarged RIGHT ATRIUM: Normal size. INTERATRIAL SEPTUM: Injection of agitated saline shows a delayed [id number] shunt with <5 bubbles during Valsalva only (no shunt visualized during rest). Possible intrapulmonary shunt given late [id number] shunt. MITRAL VALVE: ? Mitral valve is anatomically normal with preserved leaflet excursion AORTIC VALVE: The aortic valve was an anatomically normal 3 leaflet structure with normal leaflet excursion TRICUSPID VALVE: The tricuspid valve is anatomically normal with normal leaflet excursion PULMONIC VALVE: Pulmonic valve is grossly normal. LEFT ATRIAL APPENDAGE: Anatomically normal structure with prominent pectinate muscles without thrombus or vegetation identified. PERICARDIUM: The pericardium was anatomically normal without significant pericardial effusion. ? AORTA: Mild atherosclerotic plaque. Complications: None This dictation may have been done utilizing a voice recognition system.? Attempts have been made to correct errors. However, there may be uncorrected grammatical, spelling, and recognition errors present.
--- NOTE | 2022-09-22 10:55 | PCPTNOTE ---
Attempted to see patient for PT, however patient was out of the room for testing at this time.
[2022-09-22] MEDS: POTASSIUM CHLORIDE 20 MEQ PACKET (FOR LIQUID) PO (12:38)
--- NOTE | 2022-09-22 13:50 | PCPTNOTE ---
Patient declined treatment this session. Patient did not give reason why, patient stated not right now.
--- NOTE | 2022-09-22 14:47 | PCOTNOTE ---
Patient refused treatment this session. Patient verbalized he had a test today and is to tired, should be going home soon.
--- NOTE | 2022-09-22 14:48 | PM.PNCARD ---
Progress Note: A&P Assessment and Plan (1) STEMI (ST elevation myocardial infarction): Code(s): I21.3 - ST elevation (STEMI) myocardial infarction of unspecified site Status: Acute Assessment and Plan: Presented following cardiac arrest. He was found to be in Vfib, achieved ROSC after 1 shock, went back into VF requiring another shock and had ROSC upon arrival to [place] ED. EKG showed massive anterolateral STEMI. He was taken emergently to the cardiac geophysical laboratory director where angiogram revealed multivessel disease. LAD lesion thought to be culprit and attempts were made at PCI, however those attempts were unsuccessful; likely a chronic occlusion as wire unable to cross lesion. Repeat EKG in the geophysical laboratory director showed resolution of ST elevations. He was taken to the ICU in stable condition with plan for medical management and outpatient referral for CTS. Unfortunately, he now has evidence of a CVA Continue ASA Continue Brilinta Continue statin Echo showed mild reduction in LVSF, EF 45%. Severe left ventricular hypertrophy with normal size and hypokinesia of the distal anterior wall and apex. No significant valvular abnormalities. BP management with lisinopril and metoprolol. Increased lisinopril to 20mg Discussed his risk for SCD and the concept of a LifeVest for this. Family at bedside for this discussion. He and family would like to proceed with LifeVest. LifeVest delivered and patient already wearing. Patient and family would like for patient to have his surgical consultation take place at in [place], [place] as he has no family here to help him recover after surgery. Patient's family will let us know which cardiovascular team they would like to see in [place] so we can send them referral paperwork and records from here. (2) Cardiac arrest with ventricular fibrillation: Code(s): I46.9 - Cardiac arrest, cause unspecified; I49.01 - Ventricular fibrillation Status: Acute Assessment and Plan: As above.? He had a K+ of 2.9 on admission with underlying multivessel CAD which may have been the impetus for his arrest.? Keep K+ ~4.0. Perhaps add spironolactone if he requires another antihypertensive agent. (3) Fever: Code(s): R50.9 - Fever, unspecified Status: Acute Assessment and Plan: Had low-grade temperatures. Hospitalist consulted, appreciate recommendations. Clinically, no signs of infection. Anaerobic bottle only growing gram positive cocci. On vancomycin for now as per Hospitalist. (4) Acute CVA (cerebrovascular accident): Code(s): I63.9 - Cerebral infarction, unspecified Status: Acute Assessment and Plan: Head CT 09/17 showed subtle areas of low attenuation in the left frontal lob and medial left frontoparietal region which may reflect infarct related to recent cardiopulmonary arrest. Neurology consulted, appreciate recommendations Brain MRI 09/21 showed multiple scattered areas of acute infarct in the bilateral MCA distributions predominantly. Largest areas of infarct are in the left parietal lobe. Given the scattered distribution in bilateral vascular territories, consider proximal source of embolic showering. Given the brain MRI findings, pursued DE to rule out intracardiac thrombus. DE done 09/22 which was negative for intracardiac thrombus. Patient will need outpatient Neurology follow-up. Subjective Date/time seen: 09/22/22 14:48 Interval history: Reason for visit: Cardiac arrest Patient without complaints this morning. Denies chest pain, shortness of breath, or other cardiac symptoms. Telemetry without any arrhythmias. Review of Systems Review of Systems: 8 point ROS obtained. Negative, unless stated in HPI. Exam Const: General: comfortable and no acute distress HENMT: Head: normal to inspection Mouth: Yes moist mucous membranes Eyes: General: appearance normal, both eyes and all related structures Sclera: sclerae normal Neck: Neck: supple and n
--- NOTE | 2022-09-22 16:17 | PM.IMPN ---
Progress Note: A&P Assessment and Plan (1) Fever: Code(s): R50.9 - Fever, unspecified Status: Acute Assessment and Plan: patient was fevers since presentation on 09/17 with T-max 101.5?.? Fever curve is trending down and patient has been afebrile >48 hours.? No signs/ symptoms to indicate underlying infectious etiology.? UA without concerns for infection.? Patient is negative for COVID and influenza.? CXR with no acute cardiopulmonary disease.? CRP 3.8, procalcitonin 0.4.? may be related to positive blood culture. See below (2) Bacteremia: Code(s): R78.81 - Bacteremia Status: Acute Assessment and Plan: gram-positive cocci isolated in 1/2 blood cultures. Etiology unclear, may be transient bacteremia secondary to possible cutaneous source. UA without concerns for infection. No indication for GI infection. CXR with no acute findings. Patient has been started on IV vancomycin while awaiting culture identification. DE completed today with no evidence of vegetation. (3) Coronary artery disease: Code(s): I25.10 - Atherosclerotic heart disease of [place] coronary artery without angina pectoris Status: Acute Assessment and Plan: Management per Cardiology. (4) Hypertension: Code(s): I10 - Essential (primary) hypertension Status: Acute Assessment and Plan: Blood pressures have been reasonable. Continue antihypertensives and monitor. (5) Left sided cerebral hemisphere cerebrovascular accident: Code(s): I63.9 - Cerebral infarction, unspecified Status: Acute Assessment and Plan: No gross focal deficits noted on exam today. Management per Cardiology and Neurology (6) Superficial phlebitis: Code(s): I80.9 - Phlebitis and thrombophlebitis of unspecified site Status: Suspected Assessment and Plan: suspected, right upper extremity. Seems to be improved today per patient. Elevate extremity and apply warm compress. Will proceed with venous Doppler to rule out DVT, however less likely. Plan Thank you for allowing us to participate in this patient's care. Please do not hesitate to contact us with any questions. Subjective Date/time seen: 09/22/22 16:17 Interval history: date of service: 09/21/2022 Lonnie biswas is a 51-year-old male with a history of CAD and hypertension who has been hospitalized for cardiac arrest and is being seen in consultation for medical management. he is feeling well today. Underwent DE this morning and tolerated well. Denies nausea or vomiting. Denies chest pain. Endorses some pain in his right wrist at the site of of red in firm bump, he states where he previously had an IV. States that this is improving today and pain is not very noticeable. He denies fevers or chills. Denies dysuria. Denies diarrhea. Denies cough. Review of Systems Review of Systems: All systems reviewed & are unremarkable except as noted in HPI and below Exam Narrative: General: Well-nourished, well-appearing 51-year-old male, sitting up in bed, comfortable, NARD Neuro: awake, alert and oriented x4, speech clear, no focal neuro deficits noted HEENMT: normocephalic, atraumatic, EOMI, sclerae anicteric, moist oral mucosa Respiratory: clear to auscultation bilaterally, nonlabored breathing Cardio: regular rate, regular rhythm Abdomen: nondistended, normoactive bowel sounds, soft, nontender to palpation Extremities: no edema, erythema, or tenderness to palpation, DP pulses 2+ bilaterally Skin: Right wrist with firm red, minimally tender nodule with small pinpoint opening, no drainage or purulence,no rashes or lesions, warm and dry Psych: appropriate mood and affect, judgment and insight intact Objective Data Vital Signs Vital Signs: Vital Signs - 24 hr 09/21/22 21:39 09/21/22 20:00 09/21/22 21:35 Temperature 98.9 F Pulse Rate 81 78 Respiratory Rate 18 Blood Pre
[2022-09-22] MEDS: ACETAMINOPHEN 325 MG TABLET 650 MG PO (16:42)
[2022-09-23] VITALS (11 sets, daily range): BP systolic 125–146; BP diastolic 65–84; PULSE 63–82; RESP 14–18; TEMP 36.6–36.7; O2SAT 97–100
[2022-09-23] MEDS: MAGNES & ALUM HYD/SIMETH/DIPHENHYD/LIDOCAINE 119 ML MOUTHWASH BY MOUTH ×6 (02:20→22:06)
[2022-09-23 05:41] LABS: Hematocrit 42.5 % (42.0-52.0); Hemoglobin 14.5 g/dL (14.0-18.0); Mean Corpuscular HGB Conc 34.1 g/dl (32-36); Mean Platelet Volume 10.3 fl (7.4-10.4); Platelet Count Result 305 k/mm3 (150-375); Red Cell Distribution Width 12.6 % (11.5-14.5); White Blood Count 8.2 K/mm3 (4.5-10.0)
[2022-09-23 05:55] LABS: Anion Gap 11 mmol/L (8-16); Blood Urea Nitrogen 20 mg/dL (9-20); Carbon Dioxide 22 mmol/L (22-30); Chloride 104 mmol/L (98-107); Estimated CRCL calculation 80 ml/min; Estimated Glomerular Filt Rate > 60; Glucose 137 mg/dL (65-110); Potassium 3.9 mmol/L (3.4-5.0); Sodium 137 mmol/L (137-145)
--- NOTE | 2022-09-23 08:19 | PM.PNCARD ---
Progress Note: A&P Assessment and Plan (1) STEMI (ST elevation myocardial infarction): Code(s): I21.3 - ST elevation (STEMI) myocardial infarction of unspecified site Status: Acute Assessment and Plan: Presented following cardiac arrest. He was found to be in Vfib, achieved ROSC after 1 shock, went back into VF requiring another shock and had ROSC upon arrival to [place] ED. EKG showed massive anterolateral STEMI. He was taken emergently to the cardiac manager labor delivery where angiogram revealed multivessel disease. LAD lesion thought to be culprit and attempts were made at PCI, however those attempts were unsuccessful; likely a chronic occlusion as wire unable to cross lesion. Repeat EKG in the manager labor delivery showed resolution of ST elevations. He was taken to the ICU in stable condition with plan for medical management and outpatient referral for CTS. Unfortunately, he now has evidence of a CVA Continue ASA Continue Brilinta Continue statin Echo showed mild reduction in LVSF, EF 45%. Severe left ventricular hypertrophy with normal size and hypokinesia of the distal anterior wall and apex. No significant valvular abnormalities. BP management with lisinopril and metoprolol. Increased lisinopril to 20mg Discussed his risk for SCD and the concept of a LifeVest for this. Family at bedside for this discussion. He and family would like to proceed with LifeVest. LifeVest delivered and patient already wearing. Patient and family would like for patient to have his surgical consultation take place at in [place], [place] as he has no family here to help him recover after surgery. Patient's family will let us know which cardiovascular team they would like to see in [place] so we can send them referral paperwork and records from here. (2) Cardiac arrest with ventricular fibrillation: Code(s): I46.9 - Cardiac arrest, cause unspecified; I49.01 - Ventricular fibrillation Status: Acute Assessment and Plan: As above.? He had a K+ of 2.9 on admission with underlying multivessel CAD which may have been the impetus for his arrest.? Keep K+ ~4.0. Perhaps add spironolactone if he requires another antihypertensive agent. (3) Fever: Code(s): R50.9 - Fever, unspecified Status: Acute Assessment and Plan: Had low-grade temperatures. Hospitalist consulted, appreciate recommendations. Clinically, no signs of infection. Anaerobic bottle only growing gram positive cocci. On vancomycin for now as per Hospitalist. (4) Acute CVA (cerebrovascular accident): Code(s): I63.9 - Cerebral infarction, unspecified Status: Acute Assessment and Plan: Head CT 09/17 showed subtle areas of low attenuation in the left frontal lobe and medial left frontoparietal region which may reflect infarct related to recent cardiopulmonary arrest. Neurology consulted, appreciate recommendations Brain MRI 09/21 showed multiple scattered areas of acute infarct in the bilateral MCA distributions predominantly. Largest areas of infarct are in the left parietal lobe. Given the scattered distribution in bilateral vascular territories, consider proximal source of embolic showering. Given the brain MRI findings, pursued DE to rule out intracardiac thrombus. DE done 09/22 which was negative for intracardiac thrombus. Patient will need outpatient Neurology follow-up. Subjective Date/time seen: 09/23/22 08:19 Interval history: Follow-up visit in this 51-year-old man with: Coronary artery disease with ischemic LV dysfunction and out of hospital VF arrest in the setting of this as well as significant hypokalemia. Patient was extubated a couple of days ago is still in the ICU. Was significantly hypertensive yesterday started on medical treatment for this. Because of mental status be not at his baseline CT was done which demonstrates evidence of an ischemic stroke likely at the time of his VF arrest. 09/19/2021: No acute events overnight. Fe
[2022-09-23] MEDS: ATORVASTATIN 40 MG TABLET 80 MG PO (08:55)
[2022-09-23] MEDS: METOPROLOL SUCCINATE EXT REL 50 MG TABCR PO (08:55)
[2022-09-23] MEDS: ASPIRIN 81 MG ENTERIC TABLET PO (08:55)
[2022-09-23] MEDS: lisinopriL 20 MG TABLET PO (08:57)
[2022-09-23] MEDS: POTASSIUM CHLORIDE 20 MEQ PACKET (FOR LIQUID) PO (08:57)
[2022-09-23] MEDS: TICAGRELOR 90 MG TABLET PO ×2 (08:57→22:06)
[2022-09-23] MEDS: PANTOPRAZOLE SODIUM IV 40 MG VIAL IV PUSH (08:57)
[2022-09-23] MEDS: ENOXAPARIN 40 MG/0.4 ML SYRINGE SUB-Q (08:57)
--- NOTE | 2022-09-23 11:44 | PCNFU ---
Nutrition Follow-Up Complete: Inadequate Oral Intake as related to mechanical ventilation as evidenced by NPO. Goal: Meet estimated nutritional needs Patient is meeting current nutritional needs. Pt current nutrition is Heart Healthy. Last recorded weight is 112.2 kg. Bowel Motility:+Bm reported 09/21 Labs Reviewed:Glu 137 Meds Noted:Protonix, Lovenox, Vancomycin Skin: WNL Additional Notes: Patient remains on a heart healthy diet. Oral Intake being tolerating, 100% of most meals. Agree with diet orders. Will monitor every 7 days.
--- NOTE | 2022-09-23 13:05 | PC.NURSE ---
On 09/23/22, the student, [Shakila Baig], provided care and completed [facility] documentation on this patient. I have reviewed the student's documentation and agree with the findings.
--- NOTE | 2022-09-23 13:41 | PC.NURSE ---
On 09/23/22, the student, [Tru Cabrera], provided care and completed [employer] documentation on this patient. I have reviewed the student's documentation and agree with the findings.
--- NOTE | 2022-09-23 14:10 | WPDANESPN ---
Anes - Prog Note Post-Op Date/Time: 09/23/22 14:10 Cardiovascular status: normal Respiratory status: normal Airway patency: baseline Mental status: baseline Post-Op hydration status: normal Vital Signs: Last Vital Signs Temp 36.6 C 09/23/22 13:56 Pulse 78 09/23/22 13:56 Resp 18 09/23/22 13:56 BP 136/65 09/23/22 13:56 Pulse Ox 97 09/23/22 13:56 O2 Del Method Room Air 09/23/22 10:41 O2 Flow Rate 3 09/16/22 11:04 FiO2 35 09/16/22 09:21 Pain Score (VAS): Patient asleep, no nonverbal signs of pain present at this time I/O: Intake & Output 09/22/22 09/23/22 09/23/22 23:59 07:59 15:59 Intake Total 1095 1000 240 Output Total 900 Balance 1095 100 240 Laboratory Tests 09/23/22 05:22 09/23/22 05:22 09/23/22 09/23/22 09/23/22 05:22 05:22 13:17 WBC 8.2 RBC 5.00 Hgb 14.5 Hct 42.5 MCV 85.0 MCH 29.0 MCHC 34.1 RDW 12.6 Plt Count 305 MPV 10.3 Sodium 137 Potassium 3.9 Chloride 104 Carbon Dioxide 22 Anion Gap 11 BUN 20 Creatinine 1.20 Estim Creat Clear Calc 80 Estimated GFR > 60 Glucose 137 H Calcium 9.0 Vancomycin Trough Pending Microbiology 09/20/22 21:33 Blood Blood Culture - Preliminary Gram positive cocci cluster is 09/20/22 21:33 Blood Blood Culture - Preliminary Staphylococcus aureus Post-procedural complaints: none Patient Feedback: Patient satisfied with anesthetic care.
[2022-09-23 14:21] LABS: Vancomycin Trough 15.9 ug/mL (10.0-20.0)
--- NOTE | 2022-09-23 14:39 | PM.IMPN ---
Progress Note: A&P Assessment and Plan (1) Bacteremia: Code(s): R78.81 - Bacteremia Status: Acute Assessment and Plan: 1/2 blood culture bottle with growth of staphylococci aureus. suspect transient bacteremia secondary to cutaneous source ( patient had opening on right wrist nodule that is now closed). today 2nd blood culture bottle became positive for gram-positive cocci in clusters. will continue IV vancomycin while awaiting susceptibility reports. repeat blood cultures today. Patient will need a total of 2 weeks of treatment from negative culture. discussed case with ID PharmJoni. DE completed on 09/22 with no evidence of vegetation. (2) Fever: Code(s): R50.9 - Fever, unspecified Status: Acute Assessment and Plan: patient with fevers on presentation with T-max 101.5?. fevers resolved and patient has been afebrile for >72 hours. felt to be secondary to above. (3) Coronary artery disease: Code(s): I25.10 - Atherosclerotic heart disease of [place] coronary artery without angina pectoris Status: Acute Assessment and Plan: Management per Cardiology. (4) Hypertension: Code(s): I10 - Essential (primary) hypertension Status: Acute Assessment and Plan: Blood pressures have been reasonable. Continue antihypertensives and monitor. (5) Left sided cerebral hemisphere cerebrovascular accident: Code(s): I63.9 - Cerebral infarction, unspecified Status: Acute Assessment and Plan: No gross focal deficits noted on exam today. Management per Cardiology and Neurology (6) Superficial phlebitis: Code(s): I80.9 - Phlebitis and thrombophlebitis of unspecified site Status: Suspected Assessment and Plan: suspected, right upper extremity. Seems to be improved today per patient. Elevate extremity and apply warm compress. Will proceed with venous Doppler to rule out DVT, however less likely. (7) Superficial venous thrombosis of arm: Code(s): I82.619 - Acute embolism and thrombosis of superficial veins of unspecified upper extremity Status: Acute Assessment and Plan: Patient with thrombophlebitis of right wrist. Patient states this occurred at site of IV infiltration. Patient reports continued improvement. Continue with supportive care. Elevate extremity and apply warm compresses. DVT ruled out on venous Doppler completed on 09/22 Plan Thank you for allowing us to participate in this patient's care. Please do not hesitate to contact us with any questions. Subjective Date/time seen: 09/23/22 14:39 Interval history: date of service: 09/23/2022 Lonnie biswas is a 51-year-old male with a history of CAD and hypertension who has been hospitalized for cardiac arrest and is being seen in consultation for medical management of bacteremia. patient states he is doing well today. Only complaint at this time is some pain in his left knee which is a chronic problem for him. He denies fevers or chills. No episodes of dizziness lightheadedness. He is tolerating his diet. Denies chest pain or shortness of breath. When asked about the nodule on his rightwrist, patient states that he has not noticed any changes, states is not very bothersome to him. Review of Systems Review of Systems: All systems reviewed & are unremarkable except as noted in HPI and below Exam Narrative: General: Well-nourished, well-appearing 51-year-old male, sitting up in bed, comfortable, NARD Neuro: awake, alert and oriented x4, speech clear, no focal neuro deficits noted HEENMT: normocephalic, atraumatic, EOMI, sclerae anicteric, moist oral mucosa Respiratory: clear to auscultation bilaterally, nonlabored breathing Cardio: regular rate, regular rhythm Abdomen: nondistended, normoactive bowel sounds, soft, nontender to palpation Extremities: no edema, erythema, or tenderness to palpation, DP puls
[2022-09-23] MEDS: ACETAMINOPHEN 325 MG TABLET 650 MG PO (15:30)
--- NOTE | 2022-09-23 17:11 | PCOTNOTE ---
Pt. D/C from OT services as pt. has returned to [facility].
[2022-09-24] VITALS (14 sets, daily range): BP systolic 115–152; BP diastolic 64–94; PULSE 60–80; RESP 14–18; TEMP 35.9–36.8; O2SAT 97–100
[2022-09-24] MEDS: MAGNES & ALUM HYD/SIMETH/DIPHENHYD/LIDOCAINE 119 ML MOUTHWASH BY MOUTH ×6 (01:18→21:40)
[2022-09-24 06:12] LABS: Hematocrit 41.4 % (42.0-52.0); Mean Corpuscular HGB Conc 33.8 g/dl (32-36); Mean Corpuscular Hemoglobin 28.7 pg (26-34); Mean Platelet Volume 10.3 fl (7.4-10.4); Platelet Count Result 297 k/mm3 (150-375); Red Blood Count 4.87 M/mm3 (4.6-6.20); Red Cell Distribution Width 12.5 % (11.5-14.5); White Blood Count 7.4 K/mm3 (4.5-10.0)
[2022-09-24 06:25] LABS: Anion Gap 9 mmol/L (8-16); Blood Urea Nitrogen 21 mg/dL (9-20); Calcium 8.7 mg/dL (8.4-10.2); Carbon Dioxide 23 mmol/L (22-30); Chloride 104 mmol/L (98-107); Estimated CRCL calculation 85 ml/min; Estimated Glomerular Filt Rate > 60; Glucose 134 mg/dL (65-110); Potassium 4.2 mmol/L (3.4-5.0); Sodium 136 mmol/L (137-145)
[2022-09-24] MEDS: PANTOPRAZOLE SODIUM IV 40 MG VIAL IV PUSH (09:51)
[2022-09-24] MEDS: ASPIRIN 81 MG ENTERIC TABLET PO (09:52)
[2022-09-24] MEDS: ATORVASTATIN 40 MG TABLET 80 MG PO (09:52)
[2022-09-24] MEDS: TICAGRELOR 90 MG TABLET PO ×2 (09:52→21:40)
[2022-09-24] MEDS: POTASSIUM CHLORIDE 20 MEQ PACKET (FOR LIQUID) PO (09:52)
[2022-09-24] MEDS: ENOXAPARIN 40 MG/0.4 ML SYRINGE SUB-Q (09:52)
[2022-09-24] MEDS: lisinopriL 20 MG TABLET PO (09:53)
[2022-09-24] MEDS: METOPROLOL SUCCINATE EXT REL 50 MG TABCR PO (09:57)
--- NOTE | 2022-09-24 13:20 | PM.IMPN ---
Progress Note: A&P Assessment and Plan (1) Bacteremia: Code(s): R78.81 - Bacteremia Status: Acute Assessment and Plan: 2/ blood culture bottle with growth of staphylococcus aureus. suspect transient bacteremia secondary to cutaneous source (patient had opening on right wrist nodule that is now closed). Susceptibility report from 1 bottle shows ANGELO. Will plan to transition to p.o. Bactrim based on susceptibility report. Monitor potassium levels with concurrent lisinopril therapy. Discontinue vancomycin. Patient will need 2 weeks of treatment from negative culture. Repeat blood cultures collected on 09/23/2022, await results. discussed case with ARIEL Weaver. DE completed on 09/22 with no evidence of vegetation. (2) Fever: Code(s): R50.9 - Fever, unspecified Status: Acute Assessment and Plan: patient with fevers on presentation with T-max 101.5?. fevers resolved and patient has been afebrile for >72 hours. felt to be secondary to above. (3) Coronary artery disease: Code(s): I25.10 - Atherosclerotic heart disease of [place] coronary artery without angina pectoris Status: Acute Assessment and Plan: Management per Cardiology. (4) Hypertension: Code(s): I10 - Essential (primary) hypertension Status: Acute Assessment and Plan: Blood pressures have been reasonable. Continue antihypertensives and monitor. (5) Left sided cerebral hemisphere cerebrovascular accident: Code(s): I63.9 - Cerebral infarction, unspecified Status: Acute Assessment and Plan: No gross focal deficits noted on exam. Management per Cardiology and Neurology (6) Superficial venous thrombosis of arm: Code(s): I82.619 - Acute embolism and thrombosis of superficial veins of unspecified upper extremity Status: Acute Assessment and Plan: Patient with thrombophlebitis of right wrist. Patient states this occurred at site of IV infiltration. Patient reports continued improvement. Continue with supportive care. Elevate extremity and apply warm compresses. DVT ruled out on venous Doppler completed on 09/22 Plan Thank you for allowing us to participate in this patient's care. Please do not hesitate to contact us with any questions. Subjective Date/time seen: 09/24/22 13:20 Interval history: date of service:? 09/23/2022 ?Lonnie biswas is a 51-year-old male with a history of CAD and hypertension who?has been hospitalized for cardiac arrest and is being seen in consultation for medical management of bacteremia. Patient is feeling well today. Offers no complaints. Denies pain at the right rest, states that redness and firmness is slightly improved. He is eager for discharge home. He has some soreness in his left leg yesterday which she attributes to laying in bed more frequently. He is tolerating weight-bearing. Encouraged increased activity today. Patient denies fevers, chills, nausea, vomiting, dizziness, lightheadedness. No chest pain or shortness of breath. Review of Systems Review of Systems: All systems reviewed & are unremarkable except as noted in HPI and below Exam Narrative: General: Well-nourished, well-appearing 51-year-old male, sitting up in bed, comfortable, NARD Neuro: awake, alert and oriented x4, speech clear, no focal neuro deficits noted HEENMT: normocephalic, atraumatic, EOMI, sclerae anicteric, moist oral mucosa Respiratory: clear to auscultation bilaterally, nonlabored breathing Cardio: regular rate, regular rhythm Abdomen: nondistended, normoactive bowel sounds, soft, nontender to palpation Extremities: no edema, erythema, or tenderness to palpation, DP pulses 2+ bilaterally Skin: Right wrist with firm red, minimally tender nodule with closed scab, no drainage or purulence,no rashes or lesions, warm and dry Psych: appropriate mood and affect, judgment and insight intact Objective Shamar
--- NOTE | 2022-09-24 15:00 | PM.PNCARD ---
Progress Note: A&P Assessment and Plan (1) STEMI (ST elevation myocardial infarction): Code(s): I21.3 - ST elevation (STEMI) myocardial infarction of unspecified site Status: Acute Assessment and Plan: Presented following cardiac arrest. He was found to be in Vfib, achieved ROSC after 1 shock, went back into VF requiring another shock and had ROSC upon arrival to [place] ED. EKG showed massive anterolateral STEMI. He was taken emergently to the cardiac hot plate plywood press laborer where angiogram revealed multivessel disease. LAD lesion thought to be culprit and attempts were made at PCI, however those attempts were unsuccessful; likely a chronic occlusion as wire unable to cross lesion. Repeat EKG in the hot plate plywood press laborer showed resolution of ST elevations. He was taken to the ICU in stable condition with plan for medical management and outpatient referral for CTS. Unfortunately, he now has evidence of a CVA Continue dual antiplatelet therapy with aspirin and ticagrelor. Continue beta-ciera, statin. BP management with lisinopril and metoprolol. Increased lisinopril to 20mg External wearable defibrillator-life vest at discharge. Patient and family would like for patient to have his surgical consultation take place at in [place], [place] as he has no family here to help him recover after surgery. Patient's family will let us know which cardiovascular team they would like to see in [place] so we can send them referral paperwork and records from here. (2) Cardiac arrest with ventricular fibrillation: Code(s): I46.9 - Cardiac arrest, cause unspecified; I49.01 - Ventricular fibrillation Status: Acute Assessment and Plan: Continue to monitor on telemetry for now. Life Vest at discharge (3) Fever: Code(s): R50.9 - Fever, unspecified Status: Acute Assessment and Plan: Had low-grade temperatures. Hospitalist consulted. Antibiotics for bacteremia per hospitalist team. (4) Acute CVA (cerebrovascular accident): Code(s): I63.9 - Cerebral infarction, unspecified Status: Acute Assessment and Plan: Head CT 09/17 showed subtle areas of low attenuation in the left frontal lobe and medial left frontoparietal region which may reflect infarct related to recent cardiopulmonary arrest. Neurology consulted, appreciate recommendations Brain MRI 09/21 showed multiple scattered areas of acute infarct in the bilateral MCA distributions predominantly. Largest areas of infarct are in the left parietal lobe. Given the scattered distribution in bilateral vascular territories, consider proximal source of embolic showering. Given the brain MRI findings, pursued DE to rule out intracardiac thrombus. DE done 09/22 which was negative for intracardiac thrombus. Patient will need outpatient Neurology follow-up. Time Spent With Patient Time with patient: 25 - 35 minutes Subjective Date/time seen: 09/24/22 15:00 Interval history: Date of service 09/24/2022: Patient is sitting up in the bed, denies any ongoing symptoms of chest pain or shortness of breath. His stepmother is in the room at the time of evaluation. Patient moving to [place], and would prefer to have additional cardiac workup including surgical revascularization and flutter. Exam Narrative: PHYSICAL EXAMINATION: GENERAL: Alert, oriented, no acute distress MENTAL STATUS: Flat affect EYES: Extraocular movements intact, no pallor EARS: External ears appear normal, hearing grossly normal NOSE: Normal and patent, no discharge MOUTH: Mucous membranes moist, tongue normal NECK: Supple, no JVD CHEST: Good respiratory effort, clear to auscultation HEART: Normal rate, regular rhythm, normal S1 and S2, no audible murmurs ABDOMEN: Soft, nontender NEUROLOGICAL: Alert, oriented, normal speech, no gross motor deficits MUSCULOSKELETAL: No major deformity, no amputation EXTREMITIES: No pedal edema, no clubbing, no cyanosis SKIN: no rash on the exposed are
[2022-09-24] MEDS: ACETAMINOPHEN 325 MG TABLET 650 MG PO (18:26)
[2022-09-24] MEDS: SULFAMETHOXAZOLE/TRIMETHOPRIM 800/160 MG DS TABLET 1 TAB PO (21:40)
[2022-09-24] MEDS: BENZOCAINE/MENTHOL (*BKC) 18 EA LOZENGE 1 LOZENGE PO (21:40)
[2022-09-25] VITALS (14 sets, daily range): BP systolic 116–143; BP diastolic 55–66; PULSE 56–88; RESP 16–20; TEMP 36–36.8; O2SAT 96–100
[2022-09-25] MEDS: MAGNES & ALUM HYD/SIMETH/DIPHENHYD/LIDOCAINE 119 ML MOUTHWASH BY MOUTH ×5 (01:48→20:38)
[2022-09-25 05:45] LABS: Hemoglobin 13.5 g/dL (14.0-18.0); Mean Corpuscular HGB Conc 33.8 g/dl (32-36); Mean Corpuscular Hemoglobin 29.1 pg (26-34); Mean Corpuscular Volume 86.2 fl (80-100); Mean Platelet Volume 10.1 fl (7.4-10.4); Platelet Count Result 293 k/mm3 (150-375); Red Blood Count 4.64 M/mm3 (4.6-6.20); Red Cell Distribution Width 12.6 % (11.5-14.5); White Blood Count 6.8 K/mm3 (4.5-10.0)
[2022-09-25 05:55] LABS: Anion Gap 11 mmol/L (8-16); Blood Urea Nitrogen 22 mg/dL (9-20); Calcium 9.2 mg/dL (8.4-10.2); Carbon Dioxide 22 mmol/L (22-30); Chloride 106 mmol/L (98-107); Estimated CRCL calculation 85 ml/min; Estimated Glomerular Filt Rate > 60; Glucose 112 mg/dL (65-110); Potassium 4.1 mmol/L (3.4-5.0); Sodium 139 mmol/L (137-145)
[2022-09-25] MEDS: ASPIRIN 81 MG ENTERIC TABLET PO (09:02)
[2022-09-25] MEDS: lisinopriL 20 MG TABLET PO (09:02)
[2022-09-25] MEDS: PANTOPRAZOLE SODIUM IV 40 MG VIAL IV PUSH (09:02)
[2022-09-25] MEDS: METOPROLOL SUCCINATE EXT REL 50 MG TABCR PO (09:02)
[2022-09-25] MEDS: TICAGRELOR 90 MG TABLET PO ×2 (09:02→20:39)
[2022-09-25] MEDS: SULFAMETHOXAZOLE/TRIMETHOPRIM 800/160 MG DS TABLET 1 TAB PO ×2 (09:02→20:39)
[2022-09-25] MEDS: ATORVASTATIN 40 MG TABLET 80 MG PO (09:03)
[2022-09-25] MEDS: ENOXAPARIN 40 MG/0.4 ML SYRINGE SUB-Q (09:03)
[2022-09-25] MEDS: BENZOCAINE/MENTHOL (*BKC) 18 EA LOZENGE 1 LOZENGE PO (09:09)
--- NOTE | 2022-09-25 09:18 | PM.PNCARD ---
Progress Note: A&P Assessment and Plan (1) STEMI (ST elevation myocardial infarction): Code(s): I21.3 - ST elevation (STEMI) myocardial infarction of unspecified site Status: Acute Assessment and Plan: Presented following cardiac arrest. He was found to be in Vfib, achieved ROSC after 1 shock, went back into VF requiring another shock and had ROSC upon arrival to [place] ED. EKG showed massive anterolateral STEMI. He was taken emergently to the cardiac laboratory director where angiogram revealed multivessel disease. LAD lesion thought to be culprit and attempts were made at PCI, however those attempts were unsuccessful; likely a chronic occlusion as wire unable to cross lesion. Repeat EKG in the laboratory director showed resolution of ST elevations. He was taken to the ICU in stable condition with plan for medical management and outpatient referral for CTS. Unfortunately, he now has evidence of a CVA Continue dual antiplatelet therapy with aspirin and ticagrelor. Continue beta-ciera, statin. Antihypertensive treatment with lisinopril and metoprolol. External wearable defibrillator-life vest at discharge. Patient and family would like for patient to have his surgical consultation take place at in [place], [place] as he has no family here to help him recover after surgery. Patient's family will let us know which cardiovascular team they would like to see in [place] so we can send them referral paperwork and records from here. On today's conversation, patient was not sure if he is relocating to [place] or for some nearby place. If patient is moving to [facility], then he may consider seeing Dr. 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 Anticipated discharge tomorrow. (2) Cardiac arrest with ventricular fibrillation: Code(s): I46.9 - Cardiac arrest, cause unspecified; I49.01 - Ventricular fibrillation Status: Acute Assessment and Plan: Continue to monitor on telemetry for now. Life Vest at discharge (3) Fever: Code(s): R50.9 - Fever, unspecified Status: Acute Assessment and Plan: Hospitalist consulted. Antibiotics for bacteremia per hospitalist team. (4) Acute CVA (cerebrovascular accident): Code(s): I63.9 - Cerebral infarction, unspecified Status: Acute Assessment and Plan: Head CT 09/17 showed subtle areas of low attenuation in the left frontal lobe and medial left frontoparietal region which may reflect infarct related to recent cardiopulmonary arrest. Neurology consulted, appreciate recommendations Brain MRI 09/21 showed multiple scattered areas of acute infarct in the bilateral MCA distributions predominantly. Largest areas of infarct are in the left parietal lobe. Given the scattered distribution in bilateral vascular territories, consider proximal source of embolic showering. Given the brain MRI findings, pursued DE to rule out intracardiac thrombus. DE done 09/22 which was negative for intracardiac thrombus. Patient will need outpatient Neurology follow-up. Subjective Date/time seen: 09/25/22 09:18 Interval history: Date of service 09/24/2022: Patient is sitting up in the bed, denies any ongoing symptoms of chest pain or shortness of breath. His stepmother is in the room at the time of evaluation. Patient moving to [place], and would prefer to have additional cardiac workup including surgical revascularization and flutter. Date of service 09/25/2022: Patient lying down in the bed, denies any ongoing symptoms of chest pain or shortness of breath. Exam Narrative: PHYSICAL EXAMINATION: GENERAL: Alert, oriented, no acute distress MENTAL STATUS: Flat affect EYES: Extraocular movements intact, no pallor EARS: External ears appear normal, hearing grossly normal NOSE: Normal and patent, no discharge MOUTH: Mucous membranes moist, tongue normal NECK: Supple, no JVD CHEST: Good respiratory effort, clear to auscultat
--- NOTE | 2022-09-25 15:08 | PM.IMPN ---
Progress Note: A&P Assessment and Plan (1) Bacteremia: Code(s): R78.81 - Bacteremia Status: Acute Assessment and Plan: 2/ blood culture bottle with growth of staphylococcus aureus. suspect transient bacteremia secondary to cutaneous source (patient had opening on right wrist nodule that is now closed). Susceptibility report shows ANGELO. Transitioned to p.o. Bactrim on 09/24/2022 based on susceptibility report. Vancomycin discontinued. patient will need 2 weeks of treatment from negative culture. Repeat blood cultures collected on 09/23 are negative to date. Discussed case with ID PharmD. DE completed on 09/22 with no evidence of vegetation. (2) Fever: Code(s): R50.9 - Fever, unspecified Status: Acute Assessment and Plan: patient with fevers on presentation with T-max 101.5?. fevers resolved and patient has been afebrile since 09/19. felt to be secondary to above. (3) Coronary artery disease: Code(s): I25.10 - Atherosclerotic heart disease of [place] coronary artery without angina pectoris Status: Acute Assessment and Plan: Management per Cardiology. (4) Hypertension: Code(s): I10 - Essential (primary) hypertension Status: Acute Assessment and Plan: Blood pressures have been reasonable. Continue antihypertensives and monitor. (5) Left sided cerebral hemisphere cerebrovascular accident: Code(s): I63.9 - Cerebral infarction, unspecified Status: Acute Assessment and Plan: No gross focal deficits noted on exam. Management per Cardiology and Neurology (6) Superficial venous thrombosis of arm: Code(s): I82.619 - Acute embolism and thrombosis of superficial veins of unspecified upper extremity Status: Acute Assessment and Plan: Patient with thrombophlebitis of right wrist. Patient states this occurred at site of IV infiltration. Patient reports continued improvement. Continue with supportive care. Elevate extremity and apply warm compresses. DVT ruled out on venous Doppler completed on 09/22 Plan Thank you for allowing us to participate in this patient's care. Please do not hesitate to contact us with any questions. Subjective Date/time seen: 09/25/22 15:08 Interval history: date of service: 09/25/2022 Lonnie biswas is a 51-year-old male with a history of CAD and hypertension who?has been hospitalized for cardiac arrest and is being seen in consultation for medical management of bacteremia.? patient is feeling well today. Offers no complaints. Wants to take a shower. Hopeful to go home tomorrow. Review of Systems Review of Systems: All systems reviewed & are unremarkable except as noted in HPI and below Exam Narrative: General: Well-nourished, well-appearing 51-year-old male, sitting up in bed, comfortable, NARD Neuro: awake, alert and oriented x4, speech clear, no focal neuro deficits noted HEENMT: normocephalic, atraumatic, EOMI, sclerae anicteric, moist oral mucosa Respiratory: clear to auscultation bilaterally, nonlabored breathing Cardio: regular rate, regular rhythm Abdomen: nondistended, normoactive bowel sounds, soft, nontender to palpation Extremities: no edema, erythema, or tenderness to palpation, DP pulses 2+ bilaterally Skin: Right wrist with firm red, minimally tender nodule with closed scab, no drainage or purulence,no rashes or lesions, warm and dry Psych: appropriate mood and affect, judgment and insight intact Objective Data Vital Signs Vital Signs: Vital Signs - 24 hr 09/24/22 18:20 09/24/22 16:00 09/24/22 19:48 Temperature 98.1 F 96.6 F L Pulse Rate 80 80 60 Respiratory Rate 18 18 Blood Pressure 129/94 H 127/77 Pulse Oximetry 99 100 Oxygen Delivery 09/25/22 00:39 09/24/22 21:30 09/25/22 04:52 Temperature 97.2 F L 96.8 F L Pulse Rate 62 62 Respiratory Rate 16 18 Blood Pressure 116/58 L 124/55 L Pulse Oximet
[2022-09-26] VITALS: PULSE 64
[2022-09-26 02:01] VITALS: BP 121/62; PULSE 70; RESP 20; TEMP 36.6; O2SAT 98
[2022-09-26 04:00] VITALS: PULSE 63
[2022-09-26] MEDS: MAGNES & ALUM HYD/SIMETH/DIPHENHYD/LIDOCAINE 119 ML MOUTHWASH BY MOUTH ×2 (05:46→09:24)
[2022-09-26 06:32] VITALS: BP 119/48; PULSE 67; RESP 20; TEMP 36.7; O2SAT 98
[2022-09-26 08:00] VITALS: PULSE 89
--- NOTE | 2022-09-26 08:54 | PM.DS ---
DS: Admitting Diagnosis Discharge Date 09/26/2022 Admitting Diagnosis cardiac arrest DS: Discharge Diagnosis Discharge Diagnosis (1) STEMI (ST elevation myocardial infarction): Qualifiers: Involved coronary artery: right coronary artery Qualified Code(s): I21.11 - ST elevation (STEMI) myocardial infarction involving right coronary artery Code(s): I21.3 - ST elevation (STEMI) myocardial infarction of unspecified site Status: Acute Assessment and Plan: Presented following cardiac arrest. He was found to be in Vfib, achieved ROSC after 1 shock, went back into VF requiring another shock and had ROSC upon arrival to [place] ED. EKG showed massive anterolateral STEMI. He was taken emergently to the cardiac director of cardiac cath lab where angiogram revealed multivessel disease. LAD lesion thought to be culprit and attempts were made at PCI, however those attempts were unsuccessful; likely a chronic occlusion as wire unable to cross lesion. Repeat EKG in the director of cardiac cath lab showed resolution of ST elevations. He was taken to the ICU in stable condition with plan for medical management and outpatient referral for CTS. Unfortunately, he now has evidence of a CVA Continue dual antiplatelet therapy with aspirin and ticagrelor. Continue beta-ciera, statin. Antihypertensive treatment with lisinopril and metoprolol. External wearable defibrillator-life vest at discharge. Patient and family would like for patient to have his surgical consultation take place at in [place], [place] as he has no family here to help him recover after surgery. Patient's family will let us know which cardiovascular team they would like to see in [place] so we can send them referral paperwork and records from here. On today's conversation, patient was not sure if he is relocating to [place] or for some nearby place. If patient is moving to [facility], then he may consider seeing Dr. 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 OK for discharge home today. (2) Cardiac arrest with ventricular fibrillation: Code(s): I46.9 - Cardiac arrest, cause unspecified; I49.01 - Ventricular fibrillation Status: Acute Assessment and Plan: Continue to monitor on telemetry for now. Life Vest at discharge (3) Fever: Code(s): R50.9 - Fever, unspecified Status: Acute Assessment and Plan: Hospitalist consulted. Antibiotics for bacteremia per hospitalist team. (4) Acute CVA (cerebrovascular accident): Code(s): I63.9 - Cerebral infarction, unspecified Status: Acute Assessment and Plan: Head CT 09/17 showed subtle areas of low attenuation in the left frontal lobe and medial left frontoparietal region which may reflect infarct related to recent cardiopulmonary arrest. Neurology consulted, appreciate recommendations Brain MRI 09/21 showed multiple scattered areas of acute infarct in the bilateral MCA distributions predominantly. Largest areas of infarct are in the left parietal lobe. Given the scattered distribution in bilateral vascular territories, consider proximal source of embolic showering. Given the brain MRI findings, pursued DE to rule out intracardiac thrombus. DE done 09/22 which was negative for intracardiac thrombus. Patient will need outpatient Neurology follow-up. DS: Summary Hospital Course Hospital Course: presented to the ER on 09/14/22 after having a witnessed cardiac arrest. Patient was at a local [facility] when he collapsed. Bystander CPR initiated. Patient found to be in VFIB by paramedics. Received 1 shock and went into ROSC with sinus rhythm. Then went again into VFIB. Got another shock. Patient arrived to the ER with ROSC. He was unresponsive initially. He was then waking up and was combative thus requiring intubation. After intubation, EKG showed massive anterolateral STEMI. STEMI team activated. He was found to have multivessel coronary artery disease. The LAD i
[2022-09-26] MEDS: SULFAMETHOXAZOLE/TRIMETHOPRIM 800/160 MG DS TABLET 1 TAB PO (09:24)
[2022-09-26] MEDS: PANTOPRAZOLE 40 MG TABLET PO (09:24)
[2022-09-26] MEDS: lisinopriL 20 MG TABLET PO (09:24)
[2022-09-26] MEDS: TICAGRELOR 90 MG TABLET PO (09:24)
[2022-09-26] MEDS: ASPIRIN 81 MG ENTERIC TABLET PO (09:24)
[2022-09-26] MEDS: ENOXAPARIN 40 MG/0.4 ML SYRINGE SUB-Q (09:24)
[2022-09-26] MEDS: ATORVASTATIN 40 MG TABLET 80 MG PO (09:24)
[2022-09-26 09:25] VITALS: PULSE 77
[2022-09-26] MEDS: METOPROLOL SUCCINATE EXT REL 50 MG TABCR PO (09:25)
== END 2022-09-26 11:47 | disposition home or self-care (01) | DRG 280 ==
LOC: ANHED 15:35 → ANHICU 15:49 → ANH2MED 09-20 16:37
PROVIDERS: Internal Medicine; Physician Assistant; Specialist; Admitting Provider Internal Medicine; Emergency Provider Emergency Medicine; Visit Provider Nurse Practitioner
PROC: 4A023N7 Measurement of Cardiac Sampling and Pressure, Left Heart, Percutaneous Approach (ICD-10-PCS; CPT 93452; principal; 2022-09-14 15:45)
PROC: B215YZZ Fluoroscopy of Left Heart using Other Contrast (ICD-10-PCS; CPT 92920; 2022-09-14 15:45)
PROC: B215YZZ Fluoroscopy of Left Heart using Other Contrast (ICD-10-PCS; CPT 36140; 2022-09-14 15:45)
PROC: B215YZZ Fluoroscopy of Left Heart using Other Contrast (ICD-10-PCS; 2022-09-14 15:45)
PROC: B24BZZ4 Ultrasonography of Heart with Aorta, Transesophageal (ICD-10-PCS; CPT 93312; principal; 2022-09-22 10:00)
DX: I21.09 ST elevation (STEMI) myocardial infarction involving other coronary artery of anterior wall (principal); I46.2 Cardiac arrest due to underlying cardiac condition; I49.01 Ventricular fibrillation; J96.00 Acute respiratory failure, unspecified whether with hypoxia or hypercapnia; I63.413 Cerebral infarction due to embolism of bilateral middle cerebral arteries; N17.9 Acute kidney failure, unspecified; R78.81 Bacteremia; I82.611 Acute embolism and thrombosis of superficial veins of right upper extremity; E87.6 Hypokalemia; E78.5 Hyperlipidemia, unspecified; Z20.822 Contact with and (suspected) exposure to COVID-19; B95.61 Methicillin susceptible Staphylococcus aureus infection as the cause of diseases classified elsewhere; Z79.82 Long term (current) use of aspirin; Z79.899 Other long term (current) drug therapy
CPT/HCPCS: 31500; 36140; 36415; 36600; 51702; 70450; 70551; 71045; 76705; 80048; 80053; 80061; 80074; 80202; 81001; 82375; 82565; 82805; 83036; 83050; 83735; 84100; 84132; 84145; 84443; 84484; 85025; 85027; 85610; 85730; 86140; 86850; 86900; 86901; 87040; 87147; 87181; 87186; 87636; 92610; 92611; 92920; 93005; 93312; 93320; 93325; 93458; 93880; 93970; 93971; 94002; 94003; 96374; 96375; 97110; 97161; 97165; 97530; 97535; 99291; A9270; C1760; C1769; C1887; C1894; C8929; C9113; G0269; J0131; J0330; J0360; J0583; J1644; J1650; J2250; J2704; J3010; J3370; J3480; J7030; J7040; Q9957